=== PATIENT | female | born 1950 | race Caucasian/White ===

== ENCOUNTER 2017-05-16 13:49 | Emergency (ER) | payer OTHER, MEDICAID ==
[~2017-05-16] VITALS: Ht 162.6 cm; Wt 87.0 kg
[~2017-05-16 13:49] MED LIST: ATEN1TAB74 PO; CYCL-36 PO; FURO1TAB93 PO; LORT5TAB PO; MEVA40TA PO; POTA20IN3 PO; SYNT112T PO; TRAM50TA PO; VENL75 PO; VITA100018 PO; WARF4 PO; XANA0.5T PO
[2017-05-16] MEDS ORDERED: IOHEXOL 350 MG/ML 10 ML VIAL (for RAD DIAG) IVCONTRAST ONE (13:50)
[2017-05-16] MEDS ORDERED: MORPHINE SULFATE 4 MG/ML INJ IV PUSH ONE (14:00)
[2017-05-16] MEDS ORDERED: ONDANSETRON HCL 4 MG/2 ML VIAL IV PUSH ONE (14:00)
--- NOTE | 2017-05-16 14:06 | PD ---
HPI Chief Complaint: Fall Time Seen by Provider: 13:58 Travel History International Travel<30 days: No Contact w/Intl Traveler<30days: No Traveled to known affect area: No History of Present Illness HPI 67-year-old female that presents to the ED for evaluation of fall. Patient accidentally had a mechanical fall at [employer] lot today. She tripped over a curb. She hit her head. She has an abrasion to the right side of the head and states that she lost consciousness but possibly a couple seconds. Per ambulance she was not ambulatory and seen with a were able to get her back on her feet. She denies any back pain or leg pain. No arm pain. She denies any chest pain or abdominal pain both with evaluation she does have some abdominal discomfort. She denies any blood thinners. She does state that she has a history of chronic back problems but nothing new from the back. Mainly she has pain in her head. She denies any blurry vision or double vision. Pain per patient is 7 out of 10 on the head. Mainly on the right side of the head where she has the abrasion. She is not sure of her last tetanus booster. She denies any nausea or vomiting at this time. She was put on a cervical collar but no back brace. PFSH Past Medical History Arthritis: Yes Blood Disorders: No Anxiety: Yes Depression: Yes Heart Rhythm Problems: No Cancer: No Cardiovascular Problems: Yes High Cholesterol: Yes Chest Pain: No Congestive Heart Failure: No Diabetes: No Endocrine: Yes Genitourinary: No Hypertension: Yes Immune Disorder: No Implanted Vascular Access Dvce: Yes Musculoskeletal: Yes Neurologic: Yes Psychiatric: Yes Reproductive: No Respiratory: Yes Myocardial Infarction: No Sleep Apnea: Yes Thyroid Disease: Yes Menopausal: Yes Tubal Ligation: Yes Past Surgical History Abdominal Surgery: Yes (CHOLECYSTECTOMY) Cardiac Surgery: No Cholecystectomy: Yes Ear Surgery: No Endocrine Surgery: No Eye Surgery: No Genitourinary Surgery: No Gynecologic Surgery: Yes (TUBAL LIGATION) Joint Replacement: Yes (RT KNEE) Oral Surgery: No Other Surgery: Yes Social History Alcohol Use: No Tobacco Use: No Substance Use: No Allergies-Medications (Allergen,Severity, Reaction): Coded Allergies: codeine (Unverified Allergy, Severe, 02/12/17) acetaminophen (Unverified Adverse Reaction, Severe, THROAT SWELLING - NAUSEA VOMITING, 02/12/17) Reported Meds & Prescriptions Reported Meds & Active Scripts Active Lortab 5/500 (Acetaminophen/Hydrocodone Bitart) 5 Mg/500 Mg Tab 1 Tab PO Q6HPRN Reported Vitamin D (Cholecalciferol) 1,000 Unit Tab 50,000 Unit PO WEEKLY Synthroid (Levothyroxine Sodium) 112 Mcg Tab 112 Mcg PO DAILY Coumadin 4 Mg Tab (Warfarin Sod) 4 Mg Tab 5 Mg PO DAILY Xanax 0.5 Mg Tab (Alprazolam) 0.5 Mg Tab 0.5 Mg PO DAILY Effexor 75 Mg Tab (Venlafaxine HCl) 75 Mg Tab 75 Mg PO DAILY Lovastatin 40 Mg Tab 40 Mg PO DAILY Tramadol Hcl (Tramadol HCl) 50 Mg Tab 50 Mg PO TID Potassium Chloride 20 Meq Pow 20 Meq PO DAILY Flexeril (Cyclobenzaprine HCl) 10 Mg Tab 10 Mg PO DAILY Lasix (Furosemide) 40 Mg Tab 40 Mg PO DAILY Tenormin (Atenolol) 50 Mg Tab 50 Mg PO DAILY Review of Systems Except as stated in HPI: all other systems reviewed are Neg Physical Exam Narrative GENERAL: SKIN: Warm and dry. HEAD: Atraumatic. Normocephalic. EYES: Pupils equal and round 4 mm reactive to light and accommodation. No scleral icterus. No injection or drainage. ENT: No nasal bleeding or discharge. Mucous membranes pink and moist. Tongue is midline. No uvula deviation. NECK: Trachea midline. No JVD. CARDIOVASCULAR: Regular rate and rhythm. No murmurs, S3, S4. RESPIRATORY: No accessory muscle use. Clear to auscultation. Breath sounds equal bilaterally. GASTROINTESTINAL: Abdomen soft, tenderness to palpation on the abdomen but mainly on the lower abdomen, nondistended. Hepatic and splenic margins not palpable. MUSCULOSKELETAL: Extremities without clubbing, cyanosis, or edema. No obvious deformities. Full range of motion of the upper and lower extremities bilaterally with no obvious discomfort. No obvious deformity noted. Pupils pulses bilaterally. No obvious lumbar, thoracic spine tenderness to palpation. Patient does have slight cervical spine tenderness to palpation but more of the pain appears to be on the right side of the neck. Patient was seen with cervical collar noted. NEUROLOGICAL: Awake and alert. No obvious cranial nerve deficits. Motor grossly within normal limits. Five out of 5 muscle strength in the arms and legs. Normal speech. PSYCHIATRIC: Appropriate mood and affect; insight and judgment normal. Data Data Orders Orders Complete Blood Count With Diff (05/16/17 13:58) Basic Metabolic Panel (Bmp) (05/16/17 13:58) Prothrombin Time / Inr (Pt) (05/16/17 13:58) Act Partial Throm Time (Ptt) (05/16/17 13:58) Magnesium (Mg) (05/16/17 13:58) Chest, Single Ap (05/16/17 13:58) Ct Brain W/O Iv Contrast(Rout) (05/16/17 13:58) Ct Abd/Pel W Iv Contrast(Rout) (05/16/17 13:58) Iv Access Insert/Monitor (05/16/17 13:58) Chest, Single Ap (05/16/17 13:58) Pelvis, Ap Only (Routine) (05/16/17 13:58) Ct Cerv Spine W/O Contrast (05/16/17 13:58) Morphine Inj (Morphine Inj) (05/16/17 14:00) Ondansetron Inj (Zofran Inj) (05/16/17 14:00) MDM Medical Decision Making Medical Screen Exam Complete: Yes Emergency Medical Condition: Yes Medical Record Reviewed: Yes Differential Diagnosis Fall versus mechanical fall versus head injury versus abrasion versus laceration versus ICH versus fracture versus minor trauma Narrative Course 67-year-old female that presents to the ED for evaluation of fall. Patient was properly examined and was found to have signs and symptoms consistent with appears to be mechanical fall. Labs and imaging were ordered. On examination patient did had some abdominal discomfort with touch. Per patient she did fell on her belly. She denies any chest pain or abdominal pain unless I touch it. At this time I recommend labs and imaging showed. She agrees with this. Patient was given IV pain medications. Patient will be signed out to incoming provider pending disposition. Giovanni Guaman May 16, 2017 14:06
[2017-05-16 14:07] VITALS: BP 138/77; PULSE 66; RESP 16; TEMP 98.8; O2SAT 96
[2017-05-16] MEDS ORDERED: VITA1000 PO (15:11)
[2017-05-16] MEDS ORDERED: CYCL10TA PO (15:11)
[2017-05-16] MEDS ORDERED: LOVA40TA PO (15:11)
[2017-05-16] MEDS ORDERED: POTA-163 PO (15:11)
[2017-05-16] MEDS ORDERED: TRAZ50TA12 PO (15:11)
[2017-05-16] MEDS ORDERED: ALPR0.5T3 PO (15:11)
[2017-05-16] MEDS ORDERED: LEVO112T2 PO (15:11)
[2017-05-16] MEDS ORDERED: VENL75TA PO (15:11)
[2017-05-16] MEDS ORDERED: ATEN50TA PO (15:11)
[2017-05-16 15:13] VITALS: BP 141/75; PULSE 62; RESP 18; O2SAT 97
--- NOTE | 2017-05-16 15:20 | RADRPT ---
EXAM DATE/TIME: 05/16/2017 14:29 [facility] COMPARISON: No previous studies available for comparison. INDICATIONS : Fell today. MEDICAL HISTORY : Unknown SURGICAL HISTORY : Unknown ENCOUNTER: Initial ACUITY: 1 day PAIN SCORE: Non-responsive. LOCATION: Bilateral pelvis FINDINGS: There is no acute fracture or dislocation of the bony pelvis. Hardware is noted within the left prox imal femur. Mild degenerative changes are noted involving the hip joints. Degenerative changes are noted throughout the lumbar spine. CONCLUSION: 1. No acute fracture or dislocation. 2. Degenerative changes involving the lumbar spine and bilateral hips. Kirt Heller MD on May 16, 2017 at 15:16 Board Certified Radiologist. This report was verified electronically.
--- NOTE | 2017-05-16 15:25 | RADRPT ---
EXAM DATE/TIME: 05/16/2017 14:27 [facility] COMPARISON: No previous studies available for comparison. INDICATIONS : Fell today. MEDICAL HISTORY : unknown SURGICAL HISTORY : unknown ENCOUNTER: Initial ACUITY: 1 day PAIN SCORE: Non-responsive. LOCATION: Bilateral chest FINDINGS: There is cardiomegaly. There is prominence of the mediastinum. There is no evidence of rib fracture o r apical pleural capping. This is full this is secondary to projection however, CT imaging of the tho rax for further assessment of this would be warranted. Adenopathy is not excluded. The lungs demonstr ate chronic interstitial changes but are otherwise clear. The visualized bony structures are grossly intact. CONCLUSION: 1. Prominence of the mediastinum which may simply be projectional. Further assessment with CT imaging could be performed for more definitive evaluation. Avery Velez MD on May 16, 2017 at 15:20 Board Certified Radiologist. This report was verified electronically.
[2017-05-16 15:44] LABS: AUTOMATED NEUTROPHIL # 7.2 TH/MM3 (1.8-7.7); BASOPHIL # 0.1 TH/MM3 (0-0.2); EOSINOPHIL # 0.3 TH/MM3 (0-0.4); EOSINOPHIL % 3.1 % (0.0-4.0); HEMATOCRIT 38.4 % (35.0-46.0); LYMPH % 16.7 % (9.0-44.0); LYMPHOCYTE # 1.7 TH/MM3 (1.0-4.8); MEAN CELL VOLUME 103.2 FL (80.0-100.0); MEAN CORPUSCULAR HEMOGLOBIN 35.4 PG (27.0-34.0); MEAN CORPUSCULAR HGB CONC 34.3 % (32.0-36.0); MONO % 6.7 % (0.0-8.0); NEUT % 72.5 % (16.0-70.0); PLATELET COUNT 180 TH/MM3 (150-450); RED BLOOD COUNT 3.72 MIL/MM3 (4.00-5.30); RED CELL DISTRIBUTION WIDTH 13.9 % (11.6-17.2); WHITE BLOOD COUNT 9.9 TH/MM3 (4.0-11.0)
[2017-05-16 15:55] LABS: APTT (PATIENT) 29.2 SEC (24.3-30.1); INTERNATIONAL NORMALIZED RATIO 0.9 RATIO; PROTHROMBIN TIME - PATIENT 10.2 SEC (9.8-11.6)
[2017-05-16 15:59] LABS: HEMO FLAGS AUTO DIFF
[2017-05-16 16:02] VITALS: BP 141/75
[2017-05-16 16:09] LABS: BICARBONATE 26.5 MEQ/L (21.0-32.0); MAGNESIUM 2.2 MG/DL (1.5-2.5); POTASSIUM 4.5 MEQ/L (3.5-5.1)
[2017-05-16 16:44] LABS: BANDS 4 % (0-6); EOSINOPHILS 6 % (0-4); METAMYELOCYTES 1 % (0-1); MYELOCYTES 1 % (0-0); NEUTROPHIL # MANUAL DIFF 8.1 TH/MM3 (1.8-7.7); POLYS (SEG NEUTROPHILS) 76 % (16-70); WBC DIFF SAMPLE 100
[2017-05-16 16:45] LABS: PLATELET ESTIMATE SMEAR NORMAL (NORMAL); PLATELET MORPHOLOGY NORMAL (NORMAL); SCAN/DIFF FINAL DIFF MANUAL
[2017-05-16 16:46] LABS: STOMATOCYTES 1+ (NORMAL)
--- NOTE | 2017-05-16 17:13 | RADRPT ---
EXAM DATE/TIME: 05/16/2017 16:55 [facility] COMPARISON: No previous studies available for comparison. INDICATIONS : Trauma. Fall. Abrasion to forehead. RADIATION DOSE: 64.70 CTDIvol (mGy) ; Tabletop CT Head MEDICAL HISTORY : Cardiovascular disease. Hypertension. Deep venous thrombosis. SURGICAL HISTORY : Cholecystectomy. Tubal ligation. ENCOUNTER: Initial ACUITY: 1 day PAIN SCALE: 5/10 LOCATION: cranial TECHNIQUE: Multiple contiguous axial images were obtained of the head. Using automated exposure control and adj ustment of the mA and/or kV according to patient size, radiation dose was kept as low as reasonably a chievable to obtain optimal diagnostic quality images. DICOM format image data is available electro nically for review and comparison. FINDINGS: CEREBRUM: The ventricles are normal for age. No evidence of midline shift, mass lesion, hemorrhage or acute in farction. No extra-axial fluid collections are seen. POSTERIOR FOSSA: The cerebellum and brainstem are intact. The 4th ventricle is midline. The cerebellopontine angle i s unremarkable. EXTRACRANIAL: The visualized portion of the orbits is intact. There is a small subgaleal hematoma along the right p arietal skull. SKULL: The calvaria is intact. No evidence of skull fracture. CONCLUSION: 1. No acute intracranial abnormality. 2. Small subgaleal hematoma along the right parietal skull. Kirt Heller MD on May 16, 2017 at 17:11 Board Certified Radiologist. This report was verified electronically.
--- NOTE | 2017-05-16 17:20 | RADRPT ---
EXAM DATE/TIME: 05/16/2017 17:02 [facility] COMPARISON: CT CERVICAL SPINE W/O CONTRAST, May 16, 2017, 16:55. INDICATIONS : Trauma. fall. IV CONTRAST: 100 cc Omnipaque 350 (iohexol) IV ; Cumulative dose for multiple exams. ORAL CONTRAST: No oral contrast ingested. RADIATION DOSE: 20.37 CTDIvol (mGy) ; Combined studies - Thorax/Abdomen/Pelvis MEDICAL HISTORY : Cardiovascular disease. Hypertension. Deep venous thrombosis. SURGICAL HISTORY : Cholecystectomy. Tubal ligation. ENCOUNTER: Initial ACUITY: 1 day PAIN SCALE: 0/10 LOCATION: Bilateral abdomen TECHNIQUE: Volumetric scanning of the abdomen and pelvis was performed. Using automated exposure control and ad justment of the mA and/or kV according to patient size, radiation dose was kept as low as reasonably achievable to obtain optimal diagnostic quality images. DICOM format image data is available electro nically for review and comparison. FINDINGS: The limited portion of lung base visualized is clear. The heart is mildly enlarged. The appearance of the liver, spleen, pancreas, adrenal glands and kidneys is within normal limits. There is no free intraperitoneal air. No free intraperitoneal fluid is identified. There is no retrop eritoneal lymphadenopathy. The aorta is normal in caliber. The visualized loops of small and large bowel in the upper abdomen are normal in appearance. The intr a-abdominal wall is intact. There is no free fluid within the pelvis. No iliac or inguinal adenopathy is present. The visualized loops of small and large bowel are unremarkable. The visualized osseous structures demonstrate fairly severe compression fractures of L2 and L3. There is no significant bony retropulsion. The appearance of these would suggest they are q. day. There ar e postsurgical changes within the left hip. CONCLUSION: 1. Compression fractures of L2 and L3. There is no significant bony retropulsion. 2. The remainder the examination is within normal limits. Avery Velez MD on May 16, 2017 at 17:16 Board Certified Radiologist. This report was verified electronically.
--- NOTE | 2017-05-16 17:40 | RADRPT ---
EXAM DATE/TIME: 05/16/2017 17:02 [facility] COMPARISON: No previous studies available for comparison. INDICATIONS : Trauma. Fall. IV CONTRAST: 100 cc Omnipaque 350 (iohexol) IV ; Cumulative dose for multiple exams. RADIATION DOSE: 20.37 CTDIvol (mGy) ; Combined studies - Thorax/Abdomen/Pelvis MEDICAL HISTORY : Cardiovascular disease. Hypertension. Deep venous thrombosis. SURGICAL HISTORY : Cholecystectomy. Tubal ligation. ENCOUNTER: Initial ACUITY: 1 day PAIN SCALE: 0/10 LOCATION: chest TECHNIQUE: Volumetric scanning of the chest was performed. Using automated exposure control and adjustment of t he mA and/or kV according to patient size, radiation dose was kept as low as reasonably achievable to obtain optimal diagnostic quality images. DICOM format image data is available electronically for review and comparison. Follow-up recommendations for detected pulmonary nodules are based at a minimum on nodule size and pa tient risk factors according to Fleischner Society Guidelines. FINDINGS: The heart is enlarged. Coronary artery calcifications are noted. No mediastinal hematoma is noted. Th e lungs are clear without infiltrate, nodule or contusion. No pleural effusion is noted. Degenerative changes and scoliosis of the thoracic spine are noted. Compression deformities are noted involving T 11 and T12 and are of indeterminate ages. CONCLUSION: 1. No acute intrathoracic trauma noted. 2. Cardiomegaly and coronary artery calcifications. 3. Compression deformities involving T11 and T12 of indeterminate ages. 4. Degenerative changes and scoliosis of the thoracic spine. Kirt Heller MD on May 16, 2017 at 17:34 Board Certified Radiologist. This report was verified electronically.
--- NOTE | 2017-05-16 17:41 | RADRPT ---
EXAM DATE/TIME: 05/16/2017 16:55 [facility] COMPARISON: CT HIP LEFT W CONTRAST, June 21, 2012, 17:56. INDICATIONS : Trauma. Fall. RADIATION DOSE: 21.56 CTDIvol (mGy) MEDICAL HISTORY : Cardiovascular disease. Hypertension. Deep venous thrombosis. SURGICAL HISTORY : Cholecystectomy. Tubal ligation. ENCOUNTER: Initial ACUITY: 1 day PAIN SCALE: 5/10 LOCATION: neck TECHNIQUE: Volumetric scanning of the cervical spine was performed. Multiplanar reconstructions in the sagittal, coronal and oblique axial planes were performed. Using automated exposure control and adjustment o f the mA and/or kV according to patient size, radiation dose was kept as low as reasonably achievable to obtain optimal diagnostic quality images. DICOM format image data is available electronically f or review and comparison. FINDINGS: VERTEBRAE: Normal vertebral body height. ALIGNMENT: No evidence of subluxation. C2-C3: The bony spinal canal is normal in size. No evidence of disc bulge or herniation. The neural forami na are bilaterally patent. C3-C4: There is a small broad-based disc bulge. There is mild osteophytic ridging. The thecal space and fora fatou are adequate. There is mild facet arthritis bilaterally. C4-C5: There is a degenerated disc with a small broad-based disc bulge. There is osteophytic ridging from th e vertebral endplates. There is mild facet arthritis bilaterally. The thecal space and foramina are a dequate. C5-C6: The bony spinal canal is normal in size. No evidence of disc bulge or herniation. The neural forami na are bilaterally patent. C6-C7: The bony spinal canal is normal in size. No evidence of disc bulge or herniation. The neural forami na are bilaterally patent. C7-T1: The bony spinal canal is normal in size. No evidence of disc bulge or herniation. The neural forami na are bilaterally patent. CONCLUSION: 1. Mild degenerative changes. No acute abnormality. Avery Velez MD on May 16, 2017 at 17:37 Board Certified Radiologist. This report was verified electronically.
[2017-05-16] MEDS ORDERED: LIDOCAINE 2%/EPINEPHrine 1:100,000 20ML MDV NERV BLOCK ONE (18:00)
--- NOTE | 2017-05-16 18:36 | PD ---
Physical Exam Date Seen by Provider: May 16, 2017 Time Seen by Provider: 18:34 Narrative I was asked by Dr. Barillas to close a scalp laceration on this patient. Please see my procedure note. Data Data Last Documented VS Vital Signs Date Time Temp Pulse Resp B/P (MAP) Pulse Ox O2 Delivery O2 Flow Rate FiO2 05/16/17 16:02 141/75 (97) 05/16/17 15:13 62 18 97 Room Air 05/16/17 14:07 98.8 Orders Orders Complete Blood Count With Diff (05/16/17 13:58) Basic Metabolic Panel (Bmp) (05/16/17 13:58) Prothrombin Time / Inr (Pt) (05/16/17 13:58) Act Partial Throm Time (Ptt) (05/16/17 13:58) Magnesium (Mg) (05/16/17 13:58) Ct Brain W/O Iv Contrast(Rout) (05/16/17 13:58) Ct Abd/Pel W Iv Contrast(Rout) (05/16/17 13:58) Iv Access Insert/Monitor (05/16/17 13:58) Chest, Single Ap (05/16/17 13:58) Pelvis, Ap Only (Routine) (05/16/17 13:58) Ct Cerv Spine W/O Contrast (05/16/17 13:58) Morphine Inj (Morphine Inj) (05/16/17 14:00) Ondansetron Inj (Zofran Inj) (05/16/17 14:00) Ct Thorax/ Chest W Iv Contrast (05/16/17 ) Iohexol 350 Inj (Omnipaque 350 Inj) (05/16/17 13:50) Lidocai-Epi 2%-1:100,000 Inj (Xylocaine- (05/16/17 18:00) Oxycodone (Roxicodone) (05/16/17 18:15) TLSO (05/16/17 ) Labs Laboratory Tests Test 05/16/17 15:00 White Blood Count 9.9 TH/MM3 Red Blood Count 3.72 MIL/MM3 Hemoglobin 13.2 GM/DL Hematocrit 38.4 % Mean Corpuscular Volume 103.2 FL Mean Corpuscular Hemoglobin 35.4 PG Mean Corpuscular Hemoglobin Concent 34.3 % Red Cell Distribution Width 13.9 % Platelet Count 180 TH/MM3 Mean Platelet Volume 7.5 FL Neutrophils (%) (Auto) 72.5 % Lymphocytes (%) (Auto) 16.7 % Monocytes (%) (Auto) 6.7 % Eosinophils (%) (Auto) 3.1 % Basophils (%) (Auto) 1.0 % Neutrophils # (Auto) 7.2 TH/MM3 Lymphocytes # (Auto) 1.7 TH/MM3 Monocytes # (Auto) 0.7 TH/MM3 Eosinophils # (Auto) 0.3 TH/MM3 Basophils # (Auto) 0.1 TH/MM3 CBC Comment AUTO DIFF Differential Total Cells Counted 100 Neutrophils % (Manual) 76 % Band Neutrophils % 4 % Lymphocytes % 9 % Monocytes % 3 % Eosinophils % 6 % Neutrophils # (Manual) 8.1 TH/MM3 Metamyelocytes 1 % Myelocytes 1 % Differential Comment FINAL DIFF MANUAL Platelet Estimate NORMAL Platelet Morphology Comment NORMAL Stomatocytes 1+ Prothrombin Time 10.2 SEC Prothromb Time International Ratio 0.9 RATIO Activated Partial Thromboplast Time 29.2 SEC Blood Urea Nitrogen 22 MG/DL Creatinine 0.99 MG/DL Random Glucose 99 MG/DL Calcium Level 8.6 MG/DL Magnesium Level 2.2 MG/DL Sodium Level 140 MEQ/L Potassium Level 4.5 MEQ/L Chloride Level 105 MEQ/L Carbon Dioxide Level 26.5 MEQ/L Anion Gap 9 MEQ/L Estimat Glomerular Filtration Rate 56 ML/MIN [facility] Medical Record Reviewed: Yes Supervised Visit with BRITTANY: Yes Procedures Procedure Narrative LACERATION LOCATION: Right upper posterior scalp LENGTH: 3 cm NUMBER OF STITCHES/SHERRY: 11 Sherry REPAIR: The area of the laceration was prepped with Betadine and sterilely draped. The laceration was infiltrated with 3 mL 2% lidocaine with epi. The wound was copiously irrigated and explored without evidence of foreign body, tendon injury or neurovascular injury. The wound was closed using sherry. This was a single layer repair. The patient was advised to keep the wound clean and dry. Patient tolerated the procedure well. Condition: Stable Jeremias Nuñez May 16, 2017 18:36
[2017-05-16] MEDS ORDERED: OXYC1CAP PO (18:49)
--- NOTE | 2017-05-16 18:49 | PD ---
Physical Exam Narrative I, Dr. Barillas, have reviewed the advance practice practitioner's documentation and am in agreement, met with the patient face to face, made the diagnosis, and the medical decision making was done by me. *My assessment and Findings: Patient is a 67-year-old female who slipped and fell today. She complains of pain all over her body. Exam shows a laceration to the right occipital part of the head. There is no active bleeding. Patient is moving all of her extremities. Data Data Last Documented VS Vital Signs Date Time Temp Pulse Resp B/P (MAP) Pulse Ox O2 Delivery O2 Flow Rate FiO2 05/16/17 16:02 141/75 (97) 05/16/17 15:13 62 18 97 Room Air 05/16/17 14:07 98.8 Orders Orders Complete Blood Count With Diff (05/16/17 13:58) Basic Metabolic Panel (Bmp) (05/16/17 13:58) Prothrombin Time / Inr (Pt) (05/16/17 13:58) Act Partial Throm Time (Ptt) (05/16/17 13:58) Magnesium (Mg) (05/16/17 13:58) Ct Brain W/O Iv Contrast(Rout) (05/16/17 13:58) Ct Abd/Pel W Iv Contrast(Rout) (05/16/17 13:58) Iv Access Insert/Monitor (05/16/17 13:58) Chest, Single Ap (05/16/17 13:58) Pelvis, Ap Only (Routine) (05/16/17 13:58) Ct Cerv Spine W/O Contrast (05/16/17 13:58) Morphine Inj (Morphine Inj) (05/16/17 14:00) Ondansetron Inj (Zofran Inj) (05/16/17 14:00) Ct Thorax/ Chest W Iv Contrast (05/16/17 ) Iohexol 350 Inj (Omnipaque 350 Inj) (05/16/17 13:50) Lidocai-Epi 2%-1:100,000 Inj (Xylocaine- (05/16/17 18:00) Oxycodone (Roxicodone) (05/16/17 18:15) TLSO (05/16/17 ) Labs Laboratory Tests Test 05/16/17 15:00 White Blood Count 9.9 TH/MM3 Red Blood Count 3.72 MIL/MM3 Hemoglobin 13.2 GM/DL Hematocrit 38.4 % Mean Corpuscular Volume 103.2 FL Mean Corpuscular Hemoglobin 35.4 PG Mean Corpuscular Hemoglobin Concent 34.3 % Red Cell Distribution Width 13.9 % Platelet Count 180 TH/MM3 Mean Platelet Volume 7.5 FL Neutrophils (%) (Auto) 72.5 % Lymphocytes (%) (Auto) 16.7 % Monocytes (%) (Auto) 6.7 % Eosinophils (%) (Auto) 3.1 % Basophils (%) (Auto) 1.0 % Neutrophils # (Auto) 7.2 TH/MM3 Lymphocytes # (Auto) 1.7 TH/MM3 Monocytes # (Auto) 0.7 TH/MM3 Eosinophils # (Auto) 0.3 TH/MM3 Basophils # (Auto) 0.1 TH/MM3 CBC Comment AUTO DIFF Differential Total Cells Counted 100 Neutrophils % (Manual) 76 % Band Neutrophils % 4 % Lymphocytes % 9 % Monocytes % 3 % Eosinophils % 6 % Neutrophils # (Manual) 8.1 TH/MM3 Metamyelocytes 1 % Myelocytes 1 % Differential Comment FINAL DIFF MANUAL Platelet Estimate NORMAL Platelet Morphology Comment NORMAL Stomatocytes 1+ Prothrombin Time 10.2 SEC Prothromb Time International Ratio 0.9 RATIO Activated Partial Thromboplast Time 29.2 SEC Blood Urea Nitrogen 22 MG/DL Creatinine 0.99 MG/DL Random Glucose 99 MG/DL Calcium Level 8.6 MG/DL Magnesium Level 2.2 MG/DL Sodium Level 140 MEQ/L Potassium Level 4.5 MEQ/L Chloride Level 105 MEQ/L Carbon Dioxide Level 26.5 MEQ/L Anion Gap 9 MEQ/L Estimat Glomerular Filtration Rate 56 ML/MIN [facility] Supervised Visit with BRITTANY: Yes Narrative Course CT head and C-spine show no acute abnormalities. There is a subgaleal hematoma of the scalp. CT the abdomen and pelvis shows compression fractures at L2 and L3. I spoke with Dr. Gmoez of neurosurgery who suggests a TLSO brace and follow-up in the office. Patient given pain medicine. Given a prescription for pain medicine and advised to call Dr. Gomez's office. Advised to return to the ED as needed for any worsening symptoms. Her scalp wound was closed with ledy. She is advised she needs to have these removed in 5 days. Diagnosis Primary Impression: Fall Qualified Codes: W19.XXXA - Unspecified fall, initial encounter Additional Impressions: Compression fracture of L2 lumbar vertebra Qualified Codes: S32.020A - Wedge compression fracture of second lumbar vertebra, initial encounter for closed fracture Compression fracture of L3 lumbar vertebra Qualified Codes: S32.030A - Wedge compression fracture of third lumbar vertebra, initial encounter for closed fracture Laceration of scalp Qualified Codes: S01.01XA - Laceration without foreign body of scalp, initial encounter Referrals: Burton Gomez MD call for appointment Patient Instructions: General Instructions, Laceration (ED), Vertebral Compression Fracture (ED) Additional Instruction: Follow up with Dr. Gomez. Take pain medicine as needed, but be careful as it may make you drowsy. Return to the ED as needed for any worsening symptoms. Scripts Oxycodone (Oxycodone) 5 Mg Cap 5 MG PO Q6H Y for PAIN, #10 CAP 0 Refills Prov: Josefina Barillas MD 05/16/17 Disposition: 01 DISCHARGE HOME Condition: Stable Josefina Barillas MD May 16, 2017 18:49
[2017-05-16] MEDS ORDERED: TETANUS/DIPHTHERIA TOXOID ADULT 0.5 ML VIAL IM ONE (19:00)
== END 2017-05-16 19:04 | disposition home or self-care (01) ==
LOC: NEPE 13:49
DX: S32.020A Wedge compression fracture of second lumbar vertebra, initial encounter for closed fracture (principal); S32.030A Wedge compression fracture of third lumbar vertebra, initial encounter for closed fracture; S01.01XA Laceration without foreign body of scalp, initial encounter; M19.90 Unspecified osteoarthritis, unspecified site; I10 Essential (primary) hypertension; E78.00 Pure hypercholesterolemia, unspecified; W01.0XXA Fall on same level from slipping, tripping and stumbling without subsequent striking against object, initial encounter; Y92.481 Parking lot as the place of occurrence of the external cause; Z23 Encounter for immunization
CPT/HCPCS: 12002; 70450; 71010; 71260; 72125; 72170; 74177; 80048; 83735; 85007; 85027; 85610; 85730; 90471; 90714; 96374; 96375; 99285; J2270; J2405; L0200; L0484; Q9967

== ENCOUNTER 2017-05-23 08:12 | Emergency (ER) | payer OTHER, MEDICAID ==
[~2017-05-23] VITALS: Ht 162.6 cm; Wt 85.0 kg
[~2017-05-23 08:12] MED LIST changes: +ALPR0.5T3 PO; -ATEN1TAB74 PO; +ATEN50TA PO; -CYCL-36 PO; +CYCL10TA PO; -FURO1TAB93 PO; +LEVO112T2 PO; -LORT5TAB PO; +LOVA40TA PO; -MEVA40TA PO; +OXYC1CAP PO; +POTA-163 PO; -SYNT112T PO; -TRAM50TA PO; +TRAZ50TA12 PO; -VENL75 PO; +VENL75TA PO; +VITA1000 PO; -VITA100018 PO; -WARF4 PO; -XANA0.5T PO
[2017-05-23 08:17] VITALS: BP 141/97; PULSE 56; RESP 16; TEMP 98.3; O2SAT 96
--- NOTE | 2017-05-23 08:53 | PD ---
HPI Chief Complaint: Wound/Suture/Staple Re-Check Time Seen by Provider: 08:26 Travel History International Travel<30 days: No Contact w/Intl Traveler<30days: No Traveled to known affect area: No History of Present Illness HPI 67-year-old female presents to the emergency department for staple removal. States she has minimal discomfort at this time and is ready to get them removed. Patient denies fever, chills or any other complaints. PFSH Past Medical History Hx Anticoagulant Therapy: No Arthritis: Yes Blood Disorders: No Anxiety: Yes Depression: Yes Heart Rhythm Problems: No Cancer: No Cardiovascular Problems: Yes High Cholesterol: Yes Chest Pain: No Congestive Heart Failure: No Cerebrovascular Accident: Yes Diabetes: No Endocrine: Yes Genitourinary: No Hypertension: Yes Immune Disorder: No Implanted Vascular Access Dvce: Yes Musculoskeletal: Yes Neurologic: Yes Psychiatric: Yes Reproductive: No Respiratory: Yes Myocardial Infarction: No Sleep Apnea: Yes Thyroid Disease: Yes ?: Not Menopausal: Yes Tubal Ligation: Yes Past Surgical History Abdominal Surgery: Yes (CHOLECYSTECTOMY) Cardiac Surgery: No Cholecystectomy: Yes Ear Surgery: No Endocrine Surgery: No Eye Surgery: No Genitourinary Surgery: No Gynecologic Surgery: Yes (TUBAL LIGATION) Joint Replacement: Yes (RT KNEE) Oral Surgery: No Other Surgery: Yes Social History Alcohol Use: Yes Tobacco Use: No Substance Use: No Allergies-Medications (Allergen,Severity, Reaction): Coded Allergies: codeine (Unverified Allergy, Severe, 05/23/17) acetaminophen (Unverified Adverse Reaction, Severe, THROAT SWELLING - NAUSEA VOMITING, 05/23/17) Reported Meds & Prescriptions Reported Meds & Active Scripts Active Oxycodone (Oxycodone HCl) 5 Mg Cap 5 Mg PO Q6H PRN Reported Lorazepam 0.5 Mg Tab 0.5 Mg PO DAILY PRN Potassium Chloride ER (Potassium Chloride) 20 Meq Tab 20 Meq PO DAILY Vitamin D-1000 (Cholecalciferol) 1,000 Unit Tab 1,000 Units PO DAILY Trazodone (Trazodone HCl) 50 Mg Tab 50 Mg PO HS Atenolol 50 Mg Tab 50 Mg PO BID Flexeril (Cyclobenzaprine HCl) 10 Mg Tab 10 Mg PO TID Lovastatin 40 Mg Tab 40 Mg PO DAILY Effexor (Venlafaxine HCl) 75 Mg Tab 75 Mg PO DAILY Levothyroxine (Levothyroxine Sodium) 112 Mcg Tab 112 Mcg PO DAILY Review of Systems Except as stated in HPI: all other systems reviewed are Neg Physical Exam Narrative GENERAL: Well-nourished, well-developed patient. SKIN: Focused skin assessment warm/dry. 11 ledy in the scalp, nonbleeding well healed HEAD: Normocephalic. EYES: No scleral icterus. No injection or drainage. NECK: Supple, trachea midline. No JVD or lymphadenopathy. GASTROINTESTINAL: Abdomen soft, non-tender, nondistended. MUSCULOSKELETAL: No cyanosis, or edema. Patient is in a spine immobilizing device from previous ER visit BACK: Nontender without obvious deformity. No CVA tenderness. Data Data Last Documented VS Vital Signs Date Time Temp Pulse Resp B/P (MAP) Pulse Ox O2 Delivery O2 Flow Rate FiO2 05/23/17 09:25 05/23/17 08:17 98.3 56 16 96 Room Air Orders Orders Ed Discharge Order (05/23/17 08:53) MDM Medical Decision Making Medical Screen Exam Complete: Yes Emergency Medical Condition: Yes Differential Diagnosis Staple removal versus suture removal versus laceration Narrative Course 67-year-old female presents to the emergency department for staple removal. States she has minimal discomfort at this time and is ready to get them removed. Patient denies fever, chills or any other complaints. Vital signs stable [place] are removed with minimal discomfort. Slight bleeding from the removal site. Wound healing well without dehiscence. Advised patient on wound care. Advised patient to follow up with primary care physician for wound check and evaluation. Patient understands and will comply. Diagnosis Primary Impression: Removal of staple Referrals: Primary Care Physician Additional Instructions: You may wash hair lightly today. You may bleed for 1 day but she should not bleed excessively. Applied pressure to the area if the site bleeds. Follow-up with her primary care physician within 2-3 days. Disposition: 01 DISCHARGE HOME Condition: Stable Suki Mcmahan May 23, 2017 08:53
[2017-05-23] MEDS ORDERED: LORA0.5T PO (09:14)
== END 2017-05-23 09:25 | disposition home or self-care (01) ==
LOC: NEPD 08:12
DX: Z48.02 Encounter for removal of sutures (principal); M19.90 Unspecified osteoarthritis, unspecified site; F41.9 Anxiety disorder, unspecified; F32.9 Major depressive disorder, single episode, unspecified; E78.00 Pure hypercholesterolemia, unspecified; I10 Essential (primary) hypertension; Z79.899 Other long term (current) drug therapy; Z88.5 Allergy status to narcotic agent; Z86.73 Personal history of transient ischemic attack (TIA), and cerebral infarction without residual deficits
CPT/HCPCS: 99281

== ENCOUNTER 2017-08-01 11:14 | Emergency (ER) | payer OTHER, MEDICAID ==
[~2017-08-01] VITALS: Ht 162.6 cm; Wt 93.0 kg
[~2017-08-01 11:14] MED LIST changes: -ALPR0.5T3 PO; +LORA0.5T PO; -POTA20IN3 PO
[2017-08-01 11:19] VITALS: BP 138/76; PULSE 48; RESP 15; TEMP 97.7; O2SAT 97
--- NOTE | 2017-08-01 12:46 | RADRPT ---
EXAM DATE/TIME: 08/01/2017 12:14 [facility] COMPARISON: No previous studies available for comparison. INDICATIONS : Right side possible foreign body. Previous laceration with ledy to right side of skull. [place] re moved in May 2017. MEDICAL HISTORY : Cardiovascular disease. Hypertension Deep venous thrombosis. SURGICAL HISTORY : Tubal ligation. Cholecystectomy. ENCOUNTER: Initial ACUITY: 3 months PAIN SCORE: 4/10 LOCATION: Right Skull FINDINGS: A two view examination of the skull demonstrates no evidence of fracture. The pituitary fossa is nor mal in configuration. No radiopaque foreign bodies are seen. CONCLUSION: No foreign body seen. Jez Wilson MD on August 01, 2017 at 12:43 Board Certified Radiologist. This report was verified electronically.
--- NOTE | 2017-08-01 12:58 | PD ---
HPI Chief Complaint: Headache Time Seen by Provider: 11:55 Travel History International Travel<30 days: No Contact w/Intl Traveler<30days: No Traveled to known affect area: No History of Present Illness HPI This is a 67-year-old female who presents to the emergency department having had a fall in May sustaining a closed head injury and having ledy put in. She had the eldy removed late May. She comes in today thinking that she has a staple retained in her skull. She has pain over the area of her scab, constant, moderate severity and she feels like there is something in there. She denies other symptoms. PFSH Past Medical History Hx Anticoagulant Therapy: No Arthritis: Yes Blood Disorders: No Anxiety: Yes Depression: Yes Heart Rhythm Problems: No Cancer: No Cardiovascular Problems: Yes High Cholesterol: Yes Chest Pain: No Congestive Heart Failure: No Cerebrovascular Accident: Yes Diabetes: No Deep Vein Thrombosis: Yes (left leg) Endocrine: Yes Genitourinary: No Hypertension: Yes Immune Disorder: No Implanted Vascular Access Dvce: Yes Musculoskeletal: Yes Neurologic: Yes Psychiatric: Yes Reproductive: No Respiratory: Yes Myocardial Infarction: No Sleep Apnea: Yes Thyroid Disease: Yes ?: Not Menopausal: Yes Tubal Ligation: Yes Past Surgical History Abdominal Surgery: Yes (CHOLECYSTECTOMY) Cardiac Surgery: No Cholecystectomy: Yes Ear Surgery: No Endocrine Surgery: No Eye Surgery: No Genitourinary Surgery: No Gynecologic Surgery: Yes (TUBAL LIGATION) Joint Replacement: Yes (RT KNEE) Oral Surgery: No Other Surgery: Yes Family History Family Myocardial Infarction: Yes Social History Alcohol Use: Yes (wine weekly) Tobacco Use: No Substance Use: No Allergies-Medications (Allergen,Severity, Reaction): Coded Allergies: codeine (Unverified Allergy, Severe, 08/01/17) acetaminophen (Unverified Adverse Reaction, Severe, THROAT SWELLING - NAUSEA VOMITING, 08/01/17) Reported Meds & Prescriptions Reported Meds & Active Scripts Active Oxycodone (Oxycodone HCl) 5 Mg Cap 5 Mg PO Q6H PRN Reported Lorazepam 0.5 Mg Tab 0.5 Mg PO DAILY PRN Potassium Chloride ER (Potassium Chloride) 20 Meq Tab 20 Meq PO DAILY Vitamin D-1000 (Cholecalciferol) 1,000 Unit Tab 1,000 Units PO DAILY Trazodone (Trazodone HCl) 50 Mg Tab 50 Mg PO HS Atenolol 50 Mg Tab 50 Mg PO BID Flexeril (Cyclobenzaprine HCl) 10 Mg Tab 10 Mg PO TID Lovastatin 40 Mg Tab 40 Mg PO DAILY Effexor (Venlafaxine HCl) 75 Mg Tab 75 Mg PO DAILY Levothyroxine (Levothyroxine Sodium) 112 Mcg Tab 112 Mcg PO DAILY Review of Systems General / Constitutional: No: Fever, Chills Cardiovascular: No: Chest Pain or Discomfort Respiratory: No: Shortness of Breath Physical Exam Narrative GENERAL: Well-appearing, no acute distress, nontoxic SKIN: Scab over the right upper scalp with no palpable stapler foreign body. Patient is locally tender in this area with some scar tissue formation. HEAD: Atraumatic. Normocephalic. ENT: No nasal bleeding or discharge. Moist mucous membranes MUSCULOSKELETAL: No obvious deformities. Moving all extremities. NEUROLOGICAL: Awake and alert. No obvious cranial nerve deficits. Motor grossly within normal limits. Normal speech. PSYCHIATRIC: Appropriate mood and affect; insight and judgment normal. Data Data Last Documented VS Vital Signs Date Time Temp Pulse Resp B/P (MAP) Pulse Ox O2 Delivery O2 Flow Rate FiO2 08/01/17 11:41 Room Air 08/01/17 11:19 97.7 48 15 138/76 (96) 97 Orders Orders Skull, Limited (<4 Views) (08/01/17 ) [facility] Medical Decision Making Medical Screen Exam Complete: Yes Emergency Medical Condition: Yes Differential Diagnosis Retained foreign body, wound healing Narrative Course This is a 67-year-old female who presents to the emergency department thinking that she has a retained staple in her scalp. I do not appreciate a foreign body on exam. Skull x-rays were obtained which are reassuring with no evidence of retained staple. I think the patient has normal scar formation. She will be discharged home. Diagnosis Primary Impression: Scar Patient Instructions: General Instructions Additional Instructions: If you develop discharge from the wound, severe pain or redness return to the emergency room. Med/Other Pt SpecificInfo: No Change to Meds Disposition: 01 DISCHARGE HOME Condition: Stable Lorena Peralta MD Aug 01, 2017 12:58
== END 2017-08-01 13:21 | disposition home or self-care (01) ==
LOC: NEPD 11:14
DX: L90.5 Scar conditions and fibrosis of skin (principal); M19.90 Unspecified osteoarthritis, unspecified site; F41.9 Anxiety disorder, unspecified; F32.9 Major depressive disorder, single episode, unspecified; E78.00 Pure hypercholesterolemia, unspecified; I10 Essential (primary) hypertension; E07.9 Disorder of thyroid, unspecified; Z86.73 Personal history of transient ischemic attack (TIA), and cerebral infarction without residual deficits; Z86.718 Personal history of other venous thrombosis and embolism
CPT/HCPCS: 70250; 99283

== ENCOUNTER 2017-09-17 10:22 | Inpatient (IN) | payer OTHER, MEDICAID, MEDICARE ==
[2017-09-17] VITALS (8 sets, daily range): BP systolic 95–137; BP diastolic 68–87; PULSE 91–157; RESP 14–18; TEMP 98.9–100.7; O2SAT 91–99
[~2017-09-17] VITALS: Ht 165.1 cm; Wt 93.3 kg
[2017-09-17] MEDS ORDERED: DILTIAZEM HCL 25 MG/5 ML VIAL IV PUSH ONE (11:15)
[2017-09-17] MEDS ORDERED: ONDANSETRON HCL 4 MG/2 ML VIAL IV PUSH ONE (11:15)
[2017-09-17] MEDS ORDERED: SODIUM CHLOR 0.9% 1000 ML INJ 1,000 ML IV ONE ×2 (11:15→12:15)
[2017-09-17] MEDS ORDERED: IBUPROFEN 600 MG TAB PO ONE (11:15)
[2017-09-17 11:38] LABS: AUTOMATED NEUTROPHIL # 4.1 TH/MM3 (1.8-7.7); BASOPHIL % 0.6 % (0.0-2.0); EOSINOPHIL % 0.3 % (0.0-4.0); HEMATOCRIT 47.4 % (35.0-46.0); HEMOGLOBIN 16.2 GM/DL (11.6-15.3); LYMPH % 15.9 % (9.0-44.0); LYMPHOCYTE # 0.9 TH/MM3 (1.0-4.8); MEAN CELL VOLUME 98.5 FL (80.0-100.0); MEAN CORPUSCULAR HEMOGLOBIN 33.6 PG (27.0-34.0); MEAN CORPUSCULAR HGB CONC 34.1 % (32.0-36.0); MEAN PLATELET VOLUME 9.3 FL (7.0-11.0); MONO % 7.7 % (0.0-8.0); MONOCYTE # 0.4 TH/MM3 (0-0.9); NEUT % 75.5 % (16.0-70.0); PLATELET COUNT 89 TH/MM3 (150-450); RED BLOOD COUNT 4.81 MIL/MM3 (4.00-5.30); RED CELL DISTRIBUTION WIDTH 13.2 % (11.6-17.2); WHITE BLOOD COUNT 5.4 TH/MM3 (4.0-11.0)
[2017-09-17 11:50] LABS: LACTIC ACID SEPSIS PROTOCOL 3.2 mmol/L (0.4-2.0)
[2017-09-17 11:54] LABS: PROTHROMBIN TIME - PATIENT 11.4 SEC (9.8-11.6)
[2017-09-17 11:55] LABS: INTERNATIONAL NORMALIZED RATIO 1.1 RATIO
[2017-09-17 11:59] LABS: BACTERIA, URINE OCC /hpf; BLOOD, URINE NEG (NEG); GLUCOSE,URINE NEG (NEG); HYALINE CAST, URINE 30 /lpf (RARE); KETONE, URINE 10 mg/dL (NEG); MUCUS URINE MANY /lpf (OCC); NITRITE,URINE NEG (NEG); PH, URINE 5.5 (5.0-8.5); SQUAMOUS EPITHELIAL CELL URINE <1 /hpf (0-5); URINE COLOR DARK-YELLOW (YELLW/STRAW); URINE LEUKOCYTE ESTERASE NEG (NEG)
[2017-09-17 12:02] LABS: ALBUMIN 2.9 GM/DL (3.4-5.0); ALKALINE PHOSPHATASE 64 U/L (45-117); ALT (GPT) 14 U/L (10-53); AST (GOT) 65 U/L (15-37); BICARBONATE 23.9 MEQ/L (21.0-32.0); BLOOD UREA NITROGEN 19 MG/DL (7-18); CALCIUM 8.9 MG/DL (8.5-10.1); CHLORIDE 96 MEQ/L (98-107); CREATININE 1.19 MG/DL (0.50-1.00); GLOMERULAR FILTRATION RATE 45 ML/MIN (>89); GLUCOSE,RANDOM 79 MG/DL (74-106); MAGNESIUM 1.7 MG/DL (1.5-2.5); PHOSPHORUS 1.8 MG/DL (2.5-4.9); SODIUM (NA) 132 MEQ/L (136-145); TOTAL BILIRUBIN ADULT 0.7 MG/DL (0.2-1.0); TOTAL PROTEIN 7.8 GM/DL (6.4-8.2); TROPONIN I 0.02 NG/ML (0.02-0.05)
--- NOTE | 2017-09-17 12:02 | RADRPT ---
EXAM DATE/TIME: 09/17/2017 11:46 [facility] COMPARISON: CHEST SINGLE AP, May 16, 2017, 14:27. INDICATIONS : Nausea, vomiting and diarrhea MEDICAL HISTORY : Hypertension. SURGICAL HISTORY : None. ENCOUNTER: Initial ACUITY: 1 week PAIN SCORE: 2/10 LOCATION: Bilateral chest FINDINGS: A single view of the chest demonstrates mild infiltrate in the right lung base. Otherwise, the lungs are grossly clear. The heart size is enlarged but stable. There no pleural effusions or pulmonary abby ma. No other significant changes are seen compared to the prior study.. CONCLUSION: Mild infiltrate right lung base. Stable cardiomegaly. Gonzalo Vega MD on September 17, 2017 at 11:59 Board Certified Radiologist. This report was verified electronically.
--- NOTE | 2017-09-17 12:05 | PD ---
HPI Chief Complaint: Cold / Flu Symptoms Time Seen by Provider: 10:46 Travel History International Travel<30 days: No Contact w/Intl Traveler<30days: No Traveled to known affect area: No History of Present Illness HPI Patient is a 67-year-old female presents mildly altered to the emergency department for evaluation of nausea vomiting and diarrhea for the past few days. Patient was found to be febrile and transport. She denies any abdominal cramping cough congestion or fevers prior to arrival. She states she just feels rundown and aches everywhere. States symptoms have been progressive and gradually worsening and severe. Has not had any recent antibiotics. Denies any chest pain or shortness of breath. Denies a history of atrial fibrillation. Her history is somewhat limited as she appears to be mildly encephalopathic. PFSH Past Medical History Hx Anticoagulant Therapy: No Arthritis: Yes Blood Disorders: No Anxiety: Yes Depression: Yes Heart Rhythm Problems: No Cancer: No Cardiovascular Problems: Yes High Cholesterol: Yes Chest Pain: No Congestive Heart Failure: No Cerebrovascular Accident: Yes Diabetes: No Deep Vein Thrombosis: Yes (left leg) Endocrine: Yes Genitourinary: No Hypertension: Yes Immune Disorder: No Implanted Vascular Access Dvce: Yes Musculoskeletal: Yes Neurologic: Yes Psychiatric: Yes Reproductive: No Respiratory: Yes Myocardial Infarction: No Sleep Apnea: Yes Thyroid Disease: Yes ?: Not Menopausal: Yes Tubal Ligation: Yes Past Surgical History Abdominal Surgery: Yes (CHOLECYSTECTOMY) Cardiac Surgery: No Cholecystectomy: Yes Ear Surgery: No Endocrine Surgery: No Eye Surgery: No Genitourinary Surgery: No Gynecologic Surgery: Yes (TUBAL LIGATION) Joint Replacement: Yes (RT KNEE) Oral Surgery: No Other Surgery: Yes Family History Family Myocardial Infarction: Yes Social History Alcohol Use: Yes (wine weekly) Tobacco Use: No Substance Use: No Allergies-Medications (Allergen,Severity, Reaction): Coded Allergies: codeine (Unverified Allergy, Severe, 09/17/17) acetaminophen (Unverified Adverse Reaction, Severe, THROAT SWELLING - NAUSEA VOMITING, 09/17/17) Reported Meds & Prescriptions Reported Meds & Active Scripts Active Oxycodone (Oxycodone HCl) 5 Mg Cap 5 Mg PO Q6H PRN Reported Lorazepam 0.5 Mg Tab 0.5 Mg PO DAILY PRN Potassium Chloride ER (Potassium Chloride) 20 Meq Tab 20 Meq PO DAILY Vitamin D-1000 (Cholecalciferol) 1,000 Unit Tab 1,000 Units PO DAILY Trazodone (Trazodone HCl) 50 Mg Tab 50 Mg PO HS Atenolol 50 Mg Tab 50 Mg PO BID Flexeril (Cyclobenzaprine HCl) 10 Mg Tab 10 Mg PO TID Lovastatin 40 Mg Tab 40 Mg PO DAILY Effexor (Venlafaxine HCl) 75 Mg Tab 75 Mg PO DAILY Levothyroxine (Levothyroxine Sodium) 112 Mcg Tab 112 Mcg PO DAILY Review of Systems Except as stated in HPI: all other systems reviewed are Neg Physical Exam Narrative GENERAL: Well-developed well-nourished, no obvious distress. SKIN: Focused skin assessment warm/dry. There is significant beefy red rash underneath the breasts bilaterally consistent with fungal infection. HEAD: Atraumatic. Normocephalic. EYES: Pupils equal and round. No scleral icterus. No injection or drainage. ENT: No nasal bleeding or discharge. Mucous membranes pink and moist. TMs clear bilaterally, oropharynx clear moist NECK: Trachea midline. No JVD. CARDIOVASCULAR: Tachycardic and irregularly irregular. No murmur appreciated. RESPIRATORY: No accessory muscle use. Clear to auscultation. Breath sounds equal bilaterally. GASTROINTESTINAL: Abdomen soft, non-tender, nondistended. Hepatic and splenic margins not palpable. MUSCULOSKELETAL: No obvious deformities. No clubbing. No cyanosis. No edema. NEUROLOGICAL: Awake and alert. Cranial nerves II through XII grossly intact and nonfocal, 5 out of 5 strength in all 4 extremities PSYCHIATRIC: Appropriate mood and affect; insight and judgment normal. Data Data Last Documented VS Vital Signs Date Time Temp Pulse Resp B/P (MAP) Pulse Ox O2 Delivery O2 Flow Rate FiO2 09/17/17 14:32 91 18 137/68 (91) 95 Nasal Cannula 2.00 09/17/17 10:40 100.7 Orders Orders Sepsis Workup Initiated (09/17/17 ) Complete Blood Count With Diff (09/17/17 11:01) Comprehensive Metabolic Panel (09/17/17 11:01) Prothrombin Time / Inr (Pt) (09/17/17 11:01) Act Partial Throm Time (Ptt) (09/17/17 11:01) Lactic Acid Sepsis Protocol (09/17/17 11:01) Magnesium (Mg) (09/17/17 11:01) Phosphorus (Po4) (09/17/17 11:01) Lipase (09/17/17 11:01) Ckmb (Isoenzyme) Profile (09/17/17 11:01) Troponin I (09/17/17 11:01) Urinalysis - C+S If Indicated (09/17/17 11:01) Influenzae A/B Antigen (09/17/17 11:01) Blood Culture (09/17/17 11:01) Chest, Single Ap (09/17/17 11:01) Blood Gas Venous (Vbg) (09/17/17 11:01) Blood Glucose (09/17/17 11:01) Ecg Monitoring (09/17/17 11:01) Iv Access Insert/Monitor (09/17/17 11:01) Oximetry (09/17/17 11:01) Oxygen Administration (09/17/17 11:01) Ibuprofen (Motrin) (09/17/17 11:15) Ondansetron Inj (Zofran Inj) (09/17/17 11:15) Sodium Chlor 0.9% 1000 Ml Inj (Ns 1000 M (09/17/17 11:15) Diltiazem Inj (Cardizem Inj) (09/17/17 11:15) Electrocardiogram (09/17/17 10:58) CKMB (09/17/17 11:15) CKMB% (09/17/17 11:15) Sodium Chlor 0.9% 1000 Ml Inj (Ns 1000 M (09/17/17 12:15) Vancomycin Inj (Vancomycin Inj) (09/17/17 13:00) Piperacil-Tazo 4.5 Gm Premix (Zosyn 4.5 (09/17/17 13:00) Urine Culture (09/17/17 11:25) C Diff Toxin Pcr (09/17/17 12:10) Ct Abd/Pel W Iv Contrast(Rout) (09/17/17 ) Vital Signs (Adult) Q15MX4,Q4H (09/17/17 12:11) Picking Supervisor / Telemetry FOZIA.Q8H (09/17/17 12:11) Cardiac Rhythm FOZIA.Q8H (09/17/17 12:11) Notify Dr: Other (09/17/17 12:11) Diltiazem Inj (Cardizem Inj) (09/17/17 12:15) Diltiazem Inj (Cardizem Inj) (09/17/17 12:45) Iohexol 350 Inj (Omnipaque 350 Inj) (09/17/17 13:07) (Hub Use Only)Inp Phy Cons/Ref (09/17/17 ) Admit Order (Ed Use Only) (09/17/17 ) Labs Laboratory Tests Test 09/17/17 11:10 09/17/17 11:15 09/17/17 11:25 09/17/17 13:35 Lactic Acid Level 3.2 mmol/L White Blood Count 5.4 TH/MM3 Red Blood Count 4.81 MIL/MM3 Hemoglobin 16.2 GM/DL Hematocrit 47.4 % Mean Corpuscular Volume 98.5 FL Mean Corpuscular Hemoglobin 33.6 PG Mean Corpuscular Hemoglobin Concent 34.1 % Red Cell Distribution Width 13.2 % Platelet Count 89 TH/MM3 Mean Platelet Volume 9.3 FL Neutrophils (%) (Auto) 75.5 % Lymphocytes (%) (Auto) 15.9 % Monocytes (%) (Auto) 7.7 % Eosinophils (%) (Auto) 0.3 % Basophils (%) (Auto) 0.6 % Neutrophils # (Auto) 4.1 TH/MM3 Lymphocytes # (Auto) 0.9 TH/MM3 Monocytes # (Auto) 0.4 TH/MM3 Eosinophils # (Auto) 0.0 TH/MM3 Basophils # (Auto) 0.0 TH/MM3 CBC Comment AUTO DIFF Differential Comment AUTO DIFF CONFIRMED Platelet Estimate LOW Platelet Morphology Comment NORMAL Prothrombin Time 11.4 SEC Prothromb Time International Ratio 1.1 RATIO Activated Partial Thromboplast Time 32.9 SEC Blood Urea Nitrogen 19 MG/DL Creatinine 1.19 MG/DL Random Glucose 79 MG/DL Total Protein 7.8 GM/DL Albumin 2.9 GM/DL Calcium Level 8.9 MG/DL Phosphorus Level 1.8 MG/DL Magnesium Level 1.7 MG/DL Alkaline Phosphatase 64 U/L Aspartate Amino Transf (AST/SGOT) 65 U/L Alanine Aminotransferase (ALT/SGPT) 14 U/L Total Bilirubin 0.7 MG/DL Sodium Level 132 MEQ/L Potassium Level 4.4 MEQ/L Chloride Level 96 MEQ/L Carbon Dioxide Level 23.9 MEQ/L Anion Gap 12 MEQ/L Estimat Glomerular Filtration Rate 45 ML/MIN Total Creatine Kinase 712 U/L Creatine Kinase MB 0.9 NG/ML Creatine Kinase MB % 0.1 % Troponin I 0.02 NG/ML Lipase 158 U/L Urine Color DARK-YELLOW Urine Turbidity HAZY Urine pH 5.5 Urine Specific [place] 1.029 Urine Protein 30 mg/dL Urine Glucose (UA) NEG mg/dL Urine Ketones 10 mg/dL Urine Occult Blood NEG Urine Nitrite NEG Urine Bilirubin NEG Urine Urobilinogen 2.0 MG/DL Urine Leukocyte Esterase NEG Urine RBC 1 /hpf Urine WBC 2 /hpf Urine Squamous Epithelial Cells <1 /hpf Urine Bacteria OCC /hpf Urine Hyaline Casts 30 /lpf Urine Mucus MANY /lpf Microscopic Urinalysis Comment CATH-CULTURE IND Blood Gas Puncture Site LINE Blood Gas Patient Temperature 98.6 Venous Blood pH 7.36 Venous Blood Partial Pressure CO2 41 mmHg Venous Blood Partial Pressure O2 32 mmHg Venous Blood HCO3 22 mmol/L Venous Blood Oxygen Saturation 56 % Venous Blood Oxygen Content 10.4 Vol % Venous Blood Base Excess -2.2 mmol/L Oxygen Delivery Device NASAL CANNULA Blood Gas Liter Flow 2 L/M MDM Medical Decision Making Medical Screen Exam Complete: Yes Emergency Medical Condition: Yes Differential Diagnosis New onset atrial fibrillation, CHF, pneumonia, influenza, sepsis. Narrative Course Patient room to the emergency department, found to be somewhat dehydrated but heart rate is very tachycardic in the 150s-170s range. Blood pressure somewhat on the low side but still I feel like this tachycardia is mostly cardiac in origin. Cardizem bolus was given, liter normal saline, lactic acid found to be elevated and if she was given an additional liter normal saline. White blood cell count is normal but her hemoglobin hematocrit are elevated and her lactic acid is somewhat elevated as well. X-ray does show small consolidation in UA does show significant pyuria. Was started on vancomycin and Zosyn. Influenza test negative. Discussed with the patient need for admission, she did require second Cardizem bolus and started on a drip. Blood pressure has been perfusable and her mental status is starting to improve slowly. Diagnosis Primary Impression: Severe sepsis Additional Impressions: Pneumonia Atrial fibrillation Atrial fibrillation with RVR New onset a-fib Tinea corporis Admitting Information Admitting Physician Requests: Admit Condition: Stable Kirt Ambriz MD Sep 17, 2017 12:05
[2017-09-17 12:07] LABS: BILIRUBIN, URINE NEG (NEG)
[2017-09-17] MEDS ORDERED: DILTIAZEM INJ 125 MG in SODIUM CHLORIDE 0.9% INJ 100 ML IV PRN (12:15)
[2017-09-17] MEDS ORDERED: DILTIAZEM HCL 25 MG/5 ML VIAL IV PUSH PRN (12:45)
[2017-09-17] MEDS ORDERED: VANCOMYCIN INJ 1,000 MG in SODIUM CHLOR 0.9% 250 ML INJ 250 ML IV ONE (13:00)
[2017-09-17] MEDS ORDERED: PIPERACIL-TAZO 4.5 GM PREMIX 100 ML IV ONE (13:00)
[2017-09-17] MEDS ORDERED: IOHEXOL 350 MG/ML 10 ML VIAL (for RAD DIAG) IVCONTRAST ONE (13:07)
--- NOTE | 2017-09-17 13:51 | RADRPT ---
EXAM DATE/TIME: 09/17/2017 12:55 [facility] COMPARISON: CHEST SINGLE AP, September 17, 2017, 11:46. CT ABDOMEN & PELVIS W CONTRAST, May 16, 2017, 17:02. INDICATIONS : Abdominal pain, nausea, vomiting, diarrhea, fever IV CONTRAST: 96 cc Omnipaque 350 (iohexol) IV ORAL CONTRAST: No oral contrast ingested. RADIATION DOSE: 8.35 CTDIvol (mGy) MEDICAL HISTORY : Cerebrovascular disease. Cardiovascular disease Diverticulitis. SURGICAL HISTORY : Cholecystectomy. ENCOUNTER: Initial ACUITY: 1 day PAIN SCALE: 9/10 LOCATION: Bilateral Abdomen TECHNIQUE: Volumetric scanning of the abdomen and pelvis was performed. Using automated exposure control and ad justment of the mA and/or kV according to patient size, radiation dose was kept as low as reasonably achievable to obtain optimal diagnostic quality images. DICOM format image data is available electro nically for review and comparison. FINDINGS: LOWER LUNGS: Airspace infiltrate in the right middle lobe perihilar distribution. Atherosclerotic calcification of the coronary arteries. LIVER: Homogeneous density without lesion. There is no dilation of the biliary tree. Patient is status post cholecystectomy. SPLEEN: Normal size without lesion. PANCREAS: Within normal limits. KIDNEYS: Normal in size and shape. There is no mass, stone or hydronephrosis. ADRENAL GLANDS: Within normal limits. VASCULAR: There is no aortic aneurysm. BOWEL/MESENTERY: The stomach, small bowel, and colon demonstrate no acute abnormality. There is no free intraperitone al air or fluid. ABDOMINAL WALL: Within normal limits. RETROPERITONEUM: There is no lymphadenopathy. BLADDER: No wall thickening or mass. REPRODUCTIVE: Within normal limits. INGUINAL: There is no lymphadenopathy or hernia. MUSCULOSKELETAL: Old compression fractures through T11, T12, L2 and L3. No acute injury. Left medullary sampson and compre ssion screw. CONCLUSION: 1. Patient's symptoms may be due to a right middle lobe perihilar pneumonic infiltrate. 2. Status post cholecystectomy. No acute intraperitoneal or pelvic process. 3. Old compression fractures of T11, T12, L2 and L3 Sunil Johnson MD on September 17, 2017 at 13:25 Board Certified Radiologist. This report was verified electronically.
--- NOTE | 2017-09-17 14:42 | EKG ---
Date Performed: 09/17/2017 Time Performed: 10:58:55 PTAGE: 67 years EKG: POSSIBLE ATRIAL TACHYCARDIA LOW QRS VOLTAGE NONSPECIFIC ST DEPRESSION ABNORMAL ECG PREVIOUS TRACING : 04/08/2012 03.50 Compared to previous tracing, possible atrial tachycardia h as replaced sinus tachycardia, nonspecific anterior ST depression is now present. DOCTOR: Kevin Ziegler Interpretating Date/Time 09/17/2017 14:41:39
[2017-09-17] MEDS ORDERED: ACETAMINOPHEN 325 MG TAB PO PRN (18:15)
[2017-09-17] MEDS ORDERED: LACTULOSE SYRUP 20 GM/30 ML CUP PO PRN (18:15)
[2017-09-17] MEDS ORDERED: BISACODYL 10 MG SUPP RECTAL PRN (18:15)
[2017-09-17] MEDS ORDERED: SODIUM CHLORIDE 0.9% FLUSH 10 ML FLUSH IV FLUSH PRN (18:15)
[2017-09-17] MEDS ORDERED: MAGNESIUM HYDROXIDE SUSP 30 ML CUP PO PRN (18:15)
[2017-09-17] MEDS ORDERED: SENNOSIDES 8.6 MG TAB PO PRN (18:15)
[2017-09-17] MEDS ORDERED: ONDANSETRON HCL 4 MG/2 ML VIAL IVP PRN (18:15)
[2017-09-17] MEDS ORDERED: NALOXONE HCL 0.4 MG/ML AMP IV PUSH PRN (18:15)
[2017-09-17] MEDS ORDERED: ENOXAPARIN SODIUM 40 MG/0.4 ML SYRINGE SQ SCH (19:00)
--- NOTE | 2017-09-17 19:02 | HHI.HP ---
HPI Service [facility] Hospitalists Primary Care Physician Unknown Admission Diagnosis Sepsis, Pna, Cadidiasis, New Afib RVR. Diagnoses: Travel History International Travel<30 Days: No Contact w/Intl Traveler <30 Da: No Traveled to Known Affected Are: No History of Present Illness This is a 67-year-old female with past medical history significant for hypertension, hyperlipidemia, arthritis, and as stated below who presents to [facility] with a four-day history of nausea, vomiting and diarrhea for the past few days. The patient was found to be febrile during transport. The patient states that she was feeling very weak since last Saturday and also in this is that she started coughing. The patient denies however chest pain or shortness of breath. Patient states she feels rundown and has aches everywhere. States that symptoms have been progressively worsening. Review of Systems As per HPI, other systems reviewed by me and negative Past Family Social History Past Medical History 1. Arthritis. 2. Hypertension. 3. Hyperlipidemia. 4. Hypothyroidism. 5. CVA. 6. Remote history of DVT. 7. Left hip fracture. 8. Depression. 9. Anxiety Past Surgical History 1. Cholecystectomy. 2. Tubal ligation. 3. Right total knee replacement arthroplasty. 4. Right hand carpal tunnel release. 5. Cardiac catheterization by Dr. Rosado. Reported Medications Reported Meds & Active Scripts Active Oxycodone (Oxycodone HCl) 5 Mg Cap 5 Mg PO Q6H PRN Reported Lorazepam 0.5 Mg Tab 0.5 Mg PO DAILY PRN Potassium Chloride ER (Potassium Chloride) 20 Meq Tab 20 Meq PO DAILY Vitamin D-1000 (Cholecalciferol) 1,000 Unit Tab 1,000 Units PO DAILY Trazodone (Trazodone HCl) 50 Mg Tab 50 Mg PO HS Atenolol 50 Mg Tab 50 Mg PO BID Flexeril (Cyclobenzaprine HCl) 10 Mg Tab 10 Mg PO TID Lovastatin 40 Mg Tab 40 Mg PO DAILY Effexor (Venlafaxine HCl) 75 Mg Tab 75 Mg PO DAILY Levothyroxine (Levothyroxine Sodium) 112 Mcg Tab 112 Mcg PO DAILY Allergies: Coded Allergies: codeine (Unverified Allergy, Severe, 09/17/17) acetaminophen (Unverified Adverse Reaction, Severe, THROAT SWELLING - NAUSEA VOMITING, 09/17/17) Active Ordered Medications Current Medications Medications (Trade) Dose Ordered Sig/Rosi Route Start Time Stop Time Status Last Admin Diltiazem HCl 125 mg/Sodium Chloride 125 ml @ 5 mls/hr TITRATE PRN IV 09/17/17 12:15 (Cardizem Inj) 32 mg ONCE PRN IV PUSH 09/17/17 12:45 09/17/17 12:36 Family History Patient states that there is cardiac history in her family. Grandmother from an [place]. Social History The patient denies smoking. The patient admits to rare alcohol use. Denies illicit drug use. The patient states she has 5 children who live in [place]. Physical Exam Vital Signs Vital Signs Date Time Temp Pulse Resp B/P (MAP) Pulse Ox O2 Delivery O2 Flow Rate FiO2 09/17/17 16:52 97 18 101/78 (86) 99 Room Air 09/17/17 15:49 92 16 110/70 (83) 99 Nasal Cannula 2.00 09/17/17 14:32 91 18 137/68 (91) 95 Nasal Cannula 2.00 09/17/17 12:35 156 09/17/17 10:40 100.7 157 18 110/68 (82) 95 Physical Exam GENERAL: This is a well-nourished, well-developed patient, in no apparent distress. SKIN: No rashes, ecchymoses. There is an erythematous rash at the level of the chest below the breasts. HEAD: Atraumatic. Normocephalic. No temporal or scalp tenderness. EYES: Pupils equal round and reactive. Extraocular motions intact. No scleral icterus. No injection or drainage. ENT: Nose without bleeding, purulent drainage or septal hematoma. Throat without erythema, tonsillar hypertrophy or exudate. Uvula midline. Airway patent. NECK: Trachea midline. No JVD or lymphadenopathy. Supple, nontender, no meningeal signs. CARDIOVASCULAR: S1-S2 are present with irregularly irregular rate and rhythm. No murmurs rubs or gallops appreciated. RESPIRATORY: Clear to auscultation. Breath sounds equal bilaterally. No wheezes , rales, or rhonchi. GASTROINTESTINAL: Abdomen soft, non-tender, nondistended. No hepato-splenomegaly , or palpable masses. No guarding. MUSCULOSKELETAL: Extremities without clubbing, cyanosis, or edema. No joint tenderness, effusion, or edema noted. No calf tenderness. Negative Homans sign bilaterally. NEUROLOGICAL: Awake and alert. Cranial nerves II through XII intact. Motor and sensory grossly within normal limits. Five out of 5 muscle strength in all muscle groups. Normal speech. Laboratory Laboratory Tests Test 09/17/17 11:10 09/17/17 11:15 09/17/17 11:25 09/17/17 13:35 Lactic Acid Level 3.2 White Blood Count 5.4 Red Blood Count 4.81 Hemoglobin 16.2 Hematocrit 47.4 Mean Corpuscular Volume 98.5 Mean Corpuscular Hemoglobin 33.6 Mean Corpuscular Hemoglobin Concent 34.1 Red Cell Distribution Width 13.2 Platelet Count 89 Mean Platelet Volume 9.3 Neutrophils (%) (Auto) 75.5 Lymphocytes (%) (Auto) 15.9 Monocytes (%) (Auto) 7.7 Eosinophils (%) (Auto) 0.3 Basophils (%) (Auto) 0.6 Neutrophils # (Auto) 4.1 Lymphocytes # (Auto) 0.9 Monocytes # (Auto) 0.4 Eosinophils # (Auto) 0.0 Basophils # (Auto) 0.0 CBC Comment AUTO DIFF Differential Comment AUTO DIFF CONFIRMED Platelet Estimate LOW Platelet Morphology Comment NORMAL Prothrombin Time 11.4 Prothromb Time International Ratio 1.1 Activated Partial Thromboplast Time 32.9 Blood Urea Nitrogen 19 Creatinine 1.19 Random Glucose 79 Total Protein 7.8 Albumin 2.9 Calcium Level 8.9 Phosphorus Level 1.8 Magnesium Level 1.7 Alkaline Phosphatase 64 Aspartate Amino Transf (AST/SGOT) 65 Alanine Aminotransferase (ALT/SGPT) 14 Total Bilirubin 0.7 Sodium Level 132 Potassium Level 4.4 Chloride Level 96 Carbon Dioxide Level 23.9 Anion Gap 12 Estimat Glomerular Filtration Rate 45 Total Creatine Kinase 712 Creatine Kinase MB 0.9 Creatine Kinase MB % 0.1 Troponin I 0.02 Lipase 158 Urine Color DARK-YELLOW Urine Turbidity HAZY Urine pH 5.5 Urine Specific [place] 1.029 Urine Protein 30 Urine Glucose (UA) NEG Urine Ketones 10 Urine Occult Blood NEG Urine Nitrite NEG Urine Bilirubin NEG Urine Urobilinogen 2.0 Urine Leukocyte Esterase NEG Urine RBC 1 Urine WBC 2 Urine Squamous Epithelial Cells <1 Urine Bacteria OCC Urine Hyaline Casts 30 Urine Mucus MANY Microscopic Urinalysis Comment CATH-CULTURE IND Blood Gas Puncture Site LINE Blood Gas Patient Temperature 98.6 Venous Blood pH 7.36 Venous Blood Partial Pressure CO2 41 Venous Blood Partial Pressure O2 32 Venous Blood HCO3 22 Venous Blood Oxygen Saturation 56 Venous Blood Oxygen Content 10.4 Venous Blood Base Excess -2.2 Oxygen Delivery Device NASAL CANNULA Blood Gas Liter Flow 2 Date/Time Source Procedure Growth Status 09/17/17 11:15 Blood Peripheral Aerobic Blood Culture Pending Received 09/17/17 11:15 Blood Peripheral Anaerobic Blood Culture Pending Received 09/17/17 11:25 Nasal Washing Influenza Types A,B Antigen ([place]) - Final NEGATIVE FOR FLU A AND B ANTIGEN.... Complete 09/17/17 11:25 Urine Catheterized Urine Urine Culture Pending Received Result Diagram: 09/17/17 1115 09/17/17 1115 Imaging Last Impressions Chest X-Ray 09/17/17 1101 Signed Impressions: Service Date/Time: Sunday, September 17, 2017 11:46 - CONCLUSION: Mild infiltrate right lung base. Stable cardiomegaly. Gonzalo Vega MD Abdomen/Pelvis CT 09/17/17 0000 Signed Impressions: Service Date/Time: Sunday, September 17, 2017 12:55 - CONCLUSION: 1. Patient's symptoms may be due to a right middle lobe perihilar pneumonic infiltrate. 2. Status post cholecystectomy. No acute intraperitoneal or pelvic process. 3. Old compression fractures of T11, T12, L2 and L3 Sunil Johnson MD Chest x-ray and CT abdomen and pelvis reviewed by me. Caprini VTE Risk Assessment Caprini VTE Risk Assessment: Mod/High Risk (score >= 2) Caprini Risk Assessment Model Point Value = 1 Point Value = 2 Point Value = 3 Point Value = 5 Age 41-60 Minor surgery BMI > 25 kg/m2 Swollen legs Varicose veins or History of unexplained or recurrent spontaneous Oral contraceptives or hormone replacement Sepsis (< 1 month) Serious lung disease, including pneumonia (< 1 month) Abnormal pulmonary function Acute myocardial infarction Congestive heart failure (< 1 month) History of inflammatory bowel disease Medical patient at bed rest Age 61-74 Arthroscopic surgery Major open surgery (> 45 min) Laparoscopic surgery (> 45 min) Malignancy Confined to bed (> 72 hours) Immobilizing plaster cast Central venous access Age >= 75 History of VTE Family history of VTE Factor V Leiden Prothrombin [id number] Lupus anticoagulant Anticardiolipin antibodies Elevated serum homocysteine Heparin-induced thrombocytopenia Other congenital or acquired thrombophilia Stroke (< 1 month) Elective arthroplasty Hip, pelvis, or leg fracture Acute spinal cord injury (< 1 month) Prophylaxis Regimen Total Risk Factor Score Risk Level Prophylaxis Regimen 0-1 Low Early ambulation 2 Moderate Order ONE of the following: *Sequential Compression Device (SCD) *Heparin 5000 units SQ BID 3-4 Higher Order ONE of the following medications: *Heparin 5000 units SQ TID *Enoxaparin/Lovenox 40 mg SQ daily (WT < 150 kg, CrCl > 30 mL/min) *Enoxaparin/Lovenox 30 mg SQ daily (WT < 150 kg, CrCl > 10-29 mL/min) *Enoxaparin/Lovenox 30 mg SQ BID (WT < 150 kg, CrCl > 30 mL/min) AND/OR *Sequential Compression Device (SCD) 5 or more Highest Order ONE of the following medications: *Heparin 5000 units SQ TID (Preferred with Epidurals) *Enoxaparin/Lovenox 40 mg SQ daily (WT < 150 kg, CrCl > 30 mL/min) *Enoxaparin/Lovenox 30 mg SQ daily (WT < 150 kg, CrCl > 10-29 mL/min) *Enoxaparin/Lovenox 30 mg SQ BID (WT < 150 kg, CrCl > 30 mL/min) AND *Sequential Compression Device (SCD) Assessment and Plan Problem List: (1) Severe sepsis ICD Code: A41.9 - Sepsis, unspecified organism; R65.20 - Severe sepsis without septic shock Status: Acute Plan: Present t on admission patient with fever and tachycardia, lactic acid of 3.2. Secondary to UTI and pneumonia. Admit the patient to the medical floor Monitor vital signs Placed on telemetry IV Rocephin IV azithromycin Follow-up blood cultures Follow-up urine culture. (2) New onset a-fib ICD Code: I48.91 - Unspecified atrial fibrillation; R65.20 - Severe sepsis without septic shock Status: Acute Plan: The patient has been started on Cardizem drip. Continue. Monitor on telemetry Consult cardiology Troponin negative (3) Atrial fibrillation with RVR ICD Code: I48.91 - Unspecified atrial fibrillation Status: Acute Plan: We will place the patient on heparin drip. Trend cardiac enzymes Check TSH (4) Pneumonia ICD Code: J18.9 - Pneumonia, unspecified organism Status: Acute Plan: Chest x-ray shows right middle lobe infiltrate. CT abdomen and pelvis also shows right infiltrate. Likely due to community-acquired pneumonia. (5) Tinea corporis ICD Code: B35.4 - Tinea corporis Status: Acute Plan: On exam there is tinea corporis under the breasts. We will place the patient nystatin powder. (6) NELLI (acute kidney injury) ICD Code: N17.9 - Acute kidney failure, unspecified Status: Acute Plan: Creatinine 1.19. Upon review of records patient's baseline between 0.5 and 0.6. Assessment and Plan GI prophylaxis: Place on PPI. DVT reflexes: SCDs, will place on heparin drip. Code Status Full code Discussed Condition With ED physician, patient. Physician Certification 2 Midnight Certification Type: Admission for Inpatient Services Order for Inpatient Services The services are ordered in accordance with Medicare regulations or non- Medicare payer requirements, as applicable. In the case of services not specified as inpatient-only, they are appropriately provided as inpatient services in accordance with the 2-midnight benchmark. Estimated LOS (days): 3 days is the estimated time the patient will need to remain in the hospital, assuming treatment plan goals are met and no additional complications. Post-Hospital Plan: Not yet determined Raz Bee MD Sep 17, 2017 19:02
[2017-09-17] MEDS: SODIUM CHLOR 0.9% 1000 ML INJ 1,000 ML IV SCH (19:10)
[2017-09-17] MEDS ORDERED: HEPARIN-D5W 25,000 U/250 ML 250 ML IV PRN (19:15)
[2017-09-17 20:19] LABS: HEMATOCRIT 42.9 % (35.0-46.0); HEMOGLOBIN 14.5 GM/DL (11.6-15.3); MEAN CELL VOLUME 98.3 FL (80.0-100.0); MEAN CORPUSCULAR HEMOGLOBIN 33.1 PG (27.0-34.0); MEAN CORPUSCULAR HGB CONC 33.7 % (32.0-36.0); MEAN PLATELET VOLUME 9.4 FL (7.0-11.0); PLATELET COUNT 92 TH/MM3 (150-450); RED BLOOD COUNT 4.37 MIL/MM3 (4.00-5.30); RED CELL DISTRIBUTION WIDTH 13.3 % (11.6-17.2); WHITE BLOOD COUNT 4.9 TH/MM3 (4.0-11.0)
[2017-09-17 20:33] LABS: INTERNATIONAL NORMALIZED RATIO 1.1 RATIO; PROTHROMBIN TIME - PATIENT 11.5 SEC (9.8-11.6)
[2017-09-17 20:56] LABS: TROPONIN I 0.02 NG/ML (0.02-0.05)
[2017-09-17] MEDS: SODIUM CHLORIDE 0.9% FLUSH 10 ML FLUSH IV FLUSH SCH (21:00)
[2017-09-17] MEDS: DOCUSATE SODIUM 50 MG/SENNA 8.6 MG TAB PO SCH (21:00)
[2017-09-17] MEDS: cefTRIAXone INJ 2,000 MG in SODIUM CHLORIDE 0.9% INJ 100 ML IV SCH (21:34)
[2017-09-17] MEDS: AZITHROMYCIN INJ 500 MG in SODIUM CHLOR 0.9% 250 ML INJ 250 ML IV SCH (23:54)
[2017-09-18] VITALS (14 sets, daily range): BP systolic 100–149; BP diastolic 61–96; PULSE 82–130; RESP 16–28; TEMP 97.6–99; O2SAT 91–97
[2017-09-18 05:59] LABS: AUTOMATED NEUTROPHIL # 2.3 TH/MM3 (1.8-7.7); BASOPHIL % 0.5 % (0.0-2.0); EOSINOPHIL # 0.2 TH/MM3 (0-0.4); EOSINOPHIL % 4.2 % (0.0-4.0); HEMATOCRIT 40.6 % (35.0-46.0); LYMPH % 25.2 % (9.0-44.0); LYMPHOCYTE # 0.9 TH/MM3 (1.0-4.8); MEAN CELL VOLUME 97.8 FL (80.0-100.0); MEAN CORPUSCULAR HEMOGLOBIN 33.7 PG (27.0-34.0); MEAN CORPUSCULAR HGB CONC 34.5 % (32.0-36.0); MEAN PLATELET VOLUME 10.1 FL (7.0-11.0); MONOCYTE # 0.3 TH/MM3 (0-0.9); NEUT % 61.1 % (16.0-70.0); PLATELET COUNT 67 TH/MM3 (150-450); RED BLOOD COUNT 4.15 MIL/MM3 (4.00-5.30); RED CELL DISTRIBUTION WIDTH 13.6 % (11.6-17.2); WHITE BLOOD COUNT 3.8 TH/MM3 (4.0-11.0)
[2017-09-18 06:24] LABS: ALBUMIN 2.1 GM/DL (3.4-5.0); ALKALINE PHOSPHATASE 47 U/L (45-117); ALT (GPT) 11 U/L (10-53); AST (GOT) 42 U/L (15-37); BICARBONATE 21.3 MEQ/L (21.0-32.0); BLOOD UREA NITROGEN 16 MG/DL (7-18); CALCIUM 7.8 MG/DL (8.5-10.1); CHLORIDE 104 MEQ/L (98-107); CREATININE 0.81 MG/DL (0.50-1.00); GLOMERULAR FILTRATION RATE 70 ML/MIN (>89); GLUCOSE,RANDOM 69 MG/DL (74-106); SODIUM (NA) 137 MEQ/L (136-145); TOTAL BILIRUBIN ADULT 0.4 MG/DL (0.2-1.0); TOTAL PROTEIN 6.1 GM/DL (6.4-8.2)
[2017-09-18 06:59] LABS: BANDS 15 % (0-6); LYMPHOCYTES 23 % (9-44); METAMYELOCYTES 1 % (0-1); MONOCYTES 3 % (0-8); MYELOCYTES 1 % (0-0); NEUTROPHIL # MANUAL DIFF 2.8 TH/MM3 (1.8-7.7); POLYS (SEG NEUTROPHILS) 57 % (16-70)
[2017-09-18 07:01] LABS: TOXIC VACUOLATION PRESENT (NONE SEEN)
[2017-09-18] MEDS: DOCUSATE SODIUM 50 MG/SENNA 8.6 MG TAB PO SCH ×2 (09:00→20:45)
[2017-09-18] MEDS: SODIUM CHLORIDE 0.9% FLUSH 10 ML FLUSH IV FLUSH SCH ×2 (09:00→20:46)
[2017-09-18] MEDS: SODIUM CHLOR 0.9% 1000 ML INJ 1,000 ML IV SCH ×3 (12:11→23:16)
[2017-09-18] MEDS ORDERED: DILTIAZEM HCL 60 MG TAB PO SCH (14:30)
[2017-09-18] MEDS ORDERED: LORazepam 0.5 MG TAB PO PRN (14:45)
[2017-09-18] MEDS ORDERED: LOPERAMIDE HCL 2 MG CAP PO PRN (14:45)
[2017-09-18] MEDS: LEVOTHYROXINE SODIUM 112 MCG TAB PO SCH (14:45)
[2017-09-18] MEDS ORDERED: ATENOLOL 50 MG TAB PO SCH (15:00)
[2017-09-18] MEDS ORDERED: NON-FORMULARY DRUG (Venlafaxine (Effexor) 75 MG) PO SCH (15:00)
[2017-09-18] MEDS: PRAVASTATIN SOD 40 MG TAB PO SCH (15:45)
[2017-09-18] MEDS: VENLAFAXINE HCL XR 75 MG CAP PO SCH (15:45)
[2017-09-18] MEDS: NYSTATIN 100,000 U/GM PWD 15 GM BTL TOPICAL SCH ×2 (15:45→22:37)
[2017-09-18] MEDS: POTASSIUM CHLORIDE 20 MEQ CONTROLLED RELEASE TAB PO SCH (15:45)
[2017-09-18] MEDS: CHOLECALCIFEROL (VIT D3) 1000 UNIT TAB PO SCH (15:45)
[2017-09-18] MEDS: DILTIAZEM HCL 30 MG TAB PO SCH ×2 (18:15→23:16)
[2017-09-18] MEDS: cefTRIAXone INJ 2,000 MG in SODIUM CHLORIDE 0.9% INJ 100 ML IV SCH (18:15)
[2017-09-18] MEDS: CYCLOBENZAPRINE HCL 10 MG TAB PO SCH (18:15)
--- NOTE | 2017-09-18 18:38 | HHI.PR ---
Subjective Remarks Deferred entry, patient seen earlier at 2:30 PM The patient states that she feels better, denies chest pain, shortness of breath improving. States feels tired. Objective Vitals Vital Signs Date Time Temp Pulse Resp B/P (MAP) Pulse Ox O2 Delivery O2 Flow Rate FiO2 09/18/17 17:00 100 23 131/96 (108) 96 Room Air 09/18/17 16:00 112 25 149/85 (106) 94 Room Air 09/18/17 15:00 114 25 119/68 (85) 94 Room Air 09/18/17 14:00 92 28 117/72 (87) 93 Room Air 09/18/17 13:00 102 25 112/79 (90) 97 Room Air 09/18/17 12:00 104 21 115/89 (98) 93 Nasal Cannula 2.00 09/18/17 11:02 88 22 114/76 (89) 94 Nasal Cannula 2.00 09/18/17 09:20 111 21 120/85 (97) 93 Nasal Cannula 2.00 09/18/17 07:05 106 09/18/17 07:00 106 20 109/89 (96) 96 Nasal Cannula 2.00 09/18/17 05:00 117 16 140/61 (87) 96 Nasal Cannula 2.00 09/18/17 03:00 99.0 130 16 113/62 (79) 95 Nasal Cannula 2.00 09/18/17 01:00 116 17 110/69 (83) 97 Nasal Cannula 2.00 09/17/17 23:00 98.9 114 14 95/70 (78) 94 Nasal Cannula 2.00 09/17/17 21:35 124 118/87 (97) 09/17/17 20:50 141 109/78 (88) 91 Nasal Cannula 09/17/17 19:41 133 94/78 09/17/17 18:51 Nasal Cannula 2.00 I/O 09/17/17 09/17/17 09/17/17 09/18/17 09/18/17 09/18/17 07:00 15:00 23:00 07:00 15:00 23:00 Intake Total 100 ml 250 ml 3350 ml Balance 100 ml 250 ml 3350 ml Intake IV Total 100 ml 250 ml 3350 ml Result Diagram: 09/18/17 0520 09/18/17 0520 Imaging Last Impressions Chest X-Ray 09/17/17 1101 Signed Impressions: Service Date/Time: Sunday, September 17, 2017 11:46 - CONCLUSION: Mild infiltrate right lung base. Stable cardiomegaly. Gonzalo Vega MD Abdomen/Pelvis CT 09/17/17 0000 Signed Impressions: Service Date/Time: Sunday, September 17, 2017 12:55 - CONCLUSION: 1. Patient's symptoms may be due to a right middle lobe perihilar pneumonic infiltrate. 2. Status post cholecystectomy. No acute intraperitoneal or pelvic process. 3. Old compression fractures of T11, T12, L2 and L3 Sunil Johnson MD Objective Remarks GENERAL: This is a well-nourished, well-developed patient, in no apparent distress. SKIN: No rashes, ecchymoses. There is an erythematous rash at the level of the chest below the breasts. HEAD: Atraumatic. Normocephalic. No temporal or scalp tenderness. EYES: Pupils equal round and reactive. Extraocular motions intact. No scleral icterus. No injection or drainage. ENT: Nose without bleeding, purulent drainage or septal hematoma. Throat without erythema, tonsillar hypertrophy or exudate. Uvula midline. Airway patent. NECK: Trachea midline. No JVD or lymphadenopathy. Supple, nontender, no meningeal signs. CARDIOVASCULAR: S1-S2 are present with irregularly irregular rate and rhythm. No murmurs rubs or gallops appreciated. RESPIRATORY: Clear to auscultation. Breath sounds equal bilaterally. No wheezes , rales, or rhonchi. GASTROINTESTINAL: Abdomen soft, non-tender, nondistended. No hepato-splenomegaly , or palpable masses. No guarding. MUSCULOSKELETAL: Extremities without clubbing, cyanosis, or edema. No joint tenderness, effusion, or edema noted. No calf tenderness. Negative Homans sign bilaterally. NEUROLOGICAL: Awake and alert. Cranial nerves II through XII intact. Motor and sensory grossly within normal limits. Five out of 5 muscle strength in all muscle groups. Normal speech. Medications and IVs Current Medications Medications (Trade) Dose Ordered Sig/Rosi Route Start Time Stop Time Status Last Admin Diltiazem HCl 125 mg/Sodium Chloride 125 ml @ 5 mls/hr TITRATE PRN IV 3/20/18 12:15 09/17/17 19:41 Sodium Chloride 1,000 ml @ 100 mls/hr Q10H IV 09/17/17 18:06 09/18/17 12:11 (NS Flush) 2 ml UNSCH PRN IV FLUSH 09/17/17 18:15 (NS Flush) 2 ml BID IV FLUSH 09/17/17 21:00 (Tylenol) 650 mg Q4H PRN PO 09/17/17 18:15 (Zofran Inj) 4 mg Q6H PRN IVP 09/17/17 18:15 (Narcan Inj) 0.4 mg UNSCH PRN IV PUSH 09/17/17 18:15 (Macey-Colace) 1 tab BID PO 09/17/17 21:00 (Milk Of Magnesia Liq) 30 ml Q12H PRN PO 09/17/17 18:15 (Senokot) 17.2 mg Q12H PRN PO 09/17/17 18:15 (Dulcolax Supp) 10 mg DAILY PRN RECTAL 09/17/17 18:15 (Lactulose Liq) 30 ml DAILY PRN PO 09/17/17 18:15 Ceftriaxone Sodium 2000 mg/ Sodium Chloride 100 ml @ 200 mls/hr Q24H IV 09/17/17 19:00 09/18/17 18:15 Azithromycin 500 mg/Sodium Chloride 250 ml @ 250 mls/hr Q24H IV 09/17/17 19:00 09/17/17 23:54 (Mycostatin Powder) 1 applic Q8HR TOPICAL 09/18/17 14:00 09/18/17 15:45 (Imodium) 2 mg Q4H PRN PO 09/18/17 14:45 09/18/17 15:45 (Vitamin D3) 1,000 units DAILY PO 09/18/17 14:45 09/18/17 15:45 (Flexeril) 10 mg TID PO 09/18/17 18:00 09/18/17 18:15 (Synthroid) 112 mcg DAILY@0600 PO 09/18/17 14:45 (Ativan) 0.5 mg DAILY PRN PO 09/18/17 14:45 (Pravachol) 40 mg DAILY PO 09/18/17 14:45 09/18/17 15:45 (Roxicodone) 5 mg Q6H PRN PO 09/18/17 14:45 (KCl) 20 meq DAILY PO 09/18/17 14:45 09/18/17 15:45 (Desyrel) 50 mg HS PO 09/18/17 21:00 (Cardizem) 30 mg Q6HR PO 09/18/17 18:00 09/18/17 18:15 (Effexor Xr) 75 mg DAILY PO 09/18/17 15:00 09/18/17 15:45 (Lopressor) 25 mg Q12HR PO 09/18/17 21:00 A/P Problem List: (1) Severe sepsis ICD Code: A41.9 - Sepsis, unspecified organism; R65.20 - Severe sepsis without septic shock Status: Acute (2) New onset a-fib ICD Code: I48.91 - Unspecified atrial fibrillation; R65.20 - Severe sepsis without septic shock Status: Acute (3) Atrial fibrillation with RVR ICD Code: I48.91 - Unspecified atrial fibrillation Status: Acute (4) Pneumonia ICD Code: J18.9 - Pneumonia, unspecified organism Status: Acute (5) Tinea corporis ICD Code: B35.4 - Tinea corporis Status: Acute (6) NELLI (acute kidney injury) ICD Code: N17.9 - Acute kidney failure, unspecified Status: Acute Assessment and Plan (1) Severe sepsis ICD Code: A41.9 - Sepsis, unspecified organism; R65.20 - Severe sepsis without septic shock Status: Acute Plan: Present t on admission patient with fever and tachycardia, lactic acid of 3.2. Secondary to UTI and pneumonia. Admit the patient to the medical floor Monitor vital signs Placed on telemetry IV Rocephin IV azithromycin Follow-up blood cultures Follow-up urine culture. 09/18 lactic acidosis resolved. Discontinue IV fluids. Continue IV antibiotics as above. Urine culture negative. (2) New onset a-fib ICD Code: I48.91 - Unspecified atrial fibrillation; R65.20 - Severe sepsis without septic shock Status: Acute Plan: The patient has been started on Cardizem drip. Continue. Monitor on telemetry Consult cardiology Troponin negative 09/18 radiology consulted. Resume patient's atenolol 50 mg p.o. twice daily, start the patient on oral diltiazem 30 mg p.o. every 6 hours and titrate Cardizem drip to off. (3) Atrial fibrillation with RVR ICD Code: I48.91 - Unspecified atrial fibrillation Status: Acute Plan: We will place the patient on heparin drip. Trend cardiac enzymes 09/18 troponin negative 2, TSH within normal range. Management of atrial fibrillation as above. (4) Pneumonia ICD Code: J18.9 - Pneumonia, unspecified organism Status: Acute Plan: Chest x-ray shows right middle lobe infiltrate. CT abdomen and pelvis also shows right infiltrate. Likely due to community-acquired pneumonia. Continue IV antibiotics. (5) Tinea corporis ICD Code: B35.4 - Tinea corporis Status: Acute Plan: On exam there is tinea corporis under the breasts. We will place the patient nystatin powder. (6) NELLI (acute kidney injury) ICD Code: N17.9 - Acute kidney failure, unspecified Status: Acute Plan: Creatinine 1.19. Upon review of records patient's baseline between 0.5 and 0.6. 09/18 creatinine trending down to 0.8. Acute kidney injury resolving. DC IV fluids Assessment and Plan GI prophylaxis: Place on PPI. DVT reflexes: SCDs, will place on heparin drip. Code Status Full code Discharge Planning Continue to monitor on the medical floor. Possible discharge in 1-2 days. aRz Bee MD Sep 18, 2017 18:38
[2017-09-18] MEDS: AZITHROMYCIN INJ 500 MG in SODIUM CHLOR 0.9% 250 ML INJ 250 ML IV SCH (18:49)
[2017-09-18] MEDS: METOPROLOL TARTRATE 25 MG TAB PO SCH (20:45)
[2017-09-18] MEDS: traZODone HCL 50 MG TAB PO SCH (20:45)
[2017-09-19] VITALS (9 sets, daily range): BP systolic 103–130; BP diastolic 57–76; PULSE 70–98; RESP 18–22; TEMP 98.1–98.4; O2SAT 90–92
[2017-09-19] MEDS: DILTIAZEM HCL 30 MG TAB PO SCH ×3 (05:25→17:42)
[2017-09-19] MEDS: LEVOTHYROXINE SODIUM 112 MCG TAB PO SCH (05:25)
[2017-09-19] MEDS: NYSTATIN 100,000 U/GM PWD 15 GM BTL TOPICAL SCH ×3 (05:25→20:47)
[2017-09-19] MEDS: CYCLOBENZAPRINE HCL 10 MG TAB PO SCH ×3 (08:33→17:42)
[2017-09-19] MEDS: ASPIRIN 81 MG CHEW TAB CHEW SCH (08:33)
[2017-09-19] MEDS: VENLAFAXINE HCL XR 75 MG CAP PO SCH (08:33)
[2017-09-19] MEDS: PRAVASTATIN SOD 40 MG TAB PO SCH (08:33)
[2017-09-19] MEDS: CHOLECALCIFEROL (VIT D3) 1000 UNIT TAB PO SCH (08:34)
[2017-09-19] MEDS: METOPROLOL TARTRATE 25 MG TAB PO SCH ×2 (08:34→20:44)
[2017-09-19] MEDS: POTASSIUM CHLORIDE 20 MEQ CONTROLLED RELEASE TAB PO SCH (08:34)
[2017-09-19] MEDS: DOCUSATE SODIUM 50 MG/SENNA 8.6 MG TAB PO SCH ×2 (08:34→20:47)
--- NOTE | 2017-09-19 09:24 | MB ---
cc: Bruno Alfonso DO DATE: 09/18/2017 REASON FOR CONSULTATION: New onset atrial fibrillation. HISTORY OF PRESENT ILLNESS: Sara Massey is a pleasant 67-year-old female who presented to [facility] Emergency Room due to nausea, vomiting and diarrhea for the past few days. The patient notes that she had been feverish and felt weak. She also noticed that she started coughing up tannish-green sputum. Upon presentation, she was found to be in atrial fibrillation with rapid ventricular response and placed on a Cardizem drip, as well as a heparin drip. Upon seeing her, she is starting to feel better. She denies chest pain, shortness of breath or palpitations. PAST MEDICAL HISTORY: 1. Arthritis. 2. Hypertension. 3. Hyperlipidemia. 4. Hypothyroidism. 5. CVA (patient states per her primary care physician that she may have had some mini strokes, but she is unsure of any neurological compromise that she has had). 6. Remote history of DVT. 7. Left hip fracture. 8. Depression. 9. Anxiety. PAST SURGICAL HISTORY: 1. Cholecystectomy. 2. Tubal ligation. 3. Right total knee replacement. 4. Right hand carpal tunnel release. 5. Cardiac catheterization (02/13/2011) for which she was found to have normal coronary anatomy, although small caliber vessels. ALLERGIES: 1. ACETAMINOPHEN. 2. CODEINE. MEDICATIONS: 1. Flexeril 10 mg t.i.d. 2. Lovastatin 40 mg daily. 3. Atenolol 50 mg b.i.d. 4. Oxycodone 5 mg every 6 hours as needed for pain. 5. Trazodone 50 mg every night. 6. Effexor 75 mg daily. 7. Ativan 0.5 mg as needed for anxiety. 8. Potassium 20 mEq daily. 9. Synthroid 112 mcg daily. FAMILY HISTORY: Grandmother from myocardial infarction. SOCIAL HISTORY: The patient denies tobacco, alcohol or drug abuse. REVIEW OF SYSTEMS: Fourteen systems were reviewed including osteopathic. Pertinent positives and negatives above, otherwise negative. PHYSICAL EXAMINATION: VITAL SIGNS: Temperature 98.6, heart rate 102, blood pressure 112/79, respirations 25, pulse oximetry 97% on room air. GENERAL: The patient appears well, in no acute distress, alert, awake and oriented x 3. HEENT: Extraocular muscles intact. Mucous membranes moist. NECK: Supple. No JVD at 45 degrees. No carotid bruits heard bilaterally. Carotid upstroke is brisk in nature. HEART: Irregularly irregular and mildly tachycardic. No murmurs, rubs or gallops are noted. LUNGS: Clear to auscultation bilaterally. No wheezes, rales or rhonchi. ABDOMEN: Soft, nontender, nondistended. No organomegaly noted. EXTREMITIES: Show trace edema bilaterally. NEUROLOGIC: No focal deficits. SKIN: Warm, dry and intact. OSTEOPATHIC: No kyphoscoliosis, lordosis or paraspinal tender points. LABORATORY DATA: Hemoglobin 14.0, hematocrit 40.6, platelets 67. Potassium 3.6, BUN 16, creatinine 0.82. Lactic acid 3.2. Troponin 0.02. ELECTROCARDIOGRAM (09/17/2017 at 10:58): Atrial fibrillation with rapid ventricular response, nonspecific ST-T wave changes. IMPRESSION: 1. New onset atrial fibrillation with rapid ventricular response. 2. Sepsis. 3. Pneumonia. 4. Acute kidney injury. 5. Thrombocytopenia. 6. Remote history of deep venous thrombosis. 7. Remote transient ischemic attacks in the past, although the patient is unable to tell me if she has ever had neurological compromise. RECOMMENDATIONS: 1. Ms. Massey presented with pneumonia and sepsis and this may have potentiated her atrial fibrillation with rapid ventricular response. 2. She has since been started on a Cardizem drip and this has been changed over to oral Cardizem. 3. I will change her atenolol to metoprolol tartrate for further heart rate control. 4. We will check a 2-D echo to look at her overall left ventricular function, cardiac structure and possible valvulopathies. 5. I discussed the consideration of anticoagulation with her and, at this point, she states that she was previously on Coumadin and during this, she had episodes of hemoptysis and does not want to be on anticoagulation. On top of this, her platelet count is currently 67,000, so we will stop heparin and not plan to place her on anticoagulation. Instead, she will be placed on aspirin 81 mg daily. 6. Further recommendations will be made based on the hospital course. Thank you for allowing me to see Sara Massey. If there are any questions, please do not hesitate to call. DO JERMAINE Isaacs , 12:56 AM , 01:26 AM
[2017-09-19 09:55] LABS: HEMATOCRIT 39.6 % (35.0-46.0); HEMOGLOBIN 13.6 GM/DL (11.6-15.3); MEAN CELL VOLUME 97.4 FL (80.0-100.0); MEAN CORPUSCULAR HEMOGLOBIN 33.5 PG (27.0-34.0); MEAN CORPUSCULAR HGB CONC 34.4 % (32.0-36.0); MEAN PLATELET VOLUME 10.1 FL (7.0-11.0); PLATELET COUNT 90 TH/MM3 (150-450); RED BLOOD COUNT 4.06 MIL/MM3 (4.00-5.30); RED CELL DISTRIBUTION WIDTH 13.4 % (11.6-17.2); WHITE BLOOD COUNT 4.7 TH/MM3 (4.0-11.0)
[2017-09-19] MEDS: SODIUM CHLOR 0.9% 1000 ML INJ 1,000 ML IV SCH (10:06)
[2017-09-19 10:22] LABS: ALBUMIN 2.1 GM/DL (3.4-5.0); ALT (GPT) 11 U/L (10-53); AST (GOT) 38 U/L (15-37); BICARBONATE 22.2 MEQ/L (21.0-32.0); BLOOD UREA NITROGEN 11 MG/DL (7-18); CALCIUM 7.8 MG/DL (8.5-10.1); CHLORIDE 107 MEQ/L (98-107); CREATININE 0.63 MG/DL (0.50-1.00); GLOMERULAR FILTRATION RATE 94 ML/MIN (>89); GLUCOSE,RANDOM 57 MG/DL (74-106); MAGNESIUM 1.8 MG/DL (1.5-2.5); PHOSPHORUS 1.6 MG/DL (2.5-4.9); SODIUM (NA) 139 MEQ/L (136-145)
[2017-09-19 10:24] LABS: ALKALINE PHOSPHATASE 45 U/L (45-117); TOTAL BILIRUBIN ADULT 0.4 MG/DL (0.2-1.0); TOTAL PROTEIN 6.1 GM/DL (6.4-8.2)
[2017-09-19] MEDS: SODIUM CHLORIDE 0.9% FLUSH 10 ML FLUSH IV FLUSH SCH ×2 (10:25→20:46)
[2017-09-19 10:46] LABS: BANDS 8 % (0-6); LYMPHOCYTES 25 % (9-44); MONOCYTES 14 % (0-8); NEUTROPHIL # MANUAL DIFF 2.8 TH/MM3 (1.8-7.7); POLYS (SEG NEUTROPHILS) 51 % (16-70)
[2017-09-19 10:49] LABS: TOXIC GRANULATION 1+ (NORMAL)
--- NOTE | 2017-09-19 12:50 | PD.CARD.PN ---
Subjective Subjective Remarks No events overnight No chest pain/SOB Heart rates controlled Objective Medications Current Medications Medications (Trade) Dose Ordered Sig/Rosi Route Start Time Stop Time Status Last Admin Diltiazem HCl 125 mg/Sodium Chloride 125 ml @ 5 mls/hr TITRATE PRN IV 09/17/17 12:15 09/17/17 19:41 Sodium Chloride 1,000 ml @ 100 mls/hr Q10H IV 09/17/17 18:06 09/18/17 23:16 (NS Flush) 2 ml UNSCH PRN IV FLUSH 09/17/17 18:15 (NS Flush) 2 ml BID IV FLUSH 09/17/17 21:00 09/19/17 10:25 (Tylenol) 650 mg Q4H PRN PO 09/17/17 18:15 (Zofran Inj) 4 mg Q6H PRN IVP 09/17/17 18:15 (Narcan Inj) 0.4 mg UNSCH PRN IV PUSH 09/17/17 18:15 (Macey-Colace) 1 tab BID PO 09/17/17 21:00 09/18/17 20:45 (Milk Of Magnesia Liq) 30 ml Q12H PRN PO 09/17/17 18:15 (Senokot) 17.2 mg Q12H PRN PO 09/17/17 18:15 (Dulcolax Supp) 10 mg DAILY PRN RECTAL 09/17/17 18:15 (Lactulose Liq) 30 ml DAILY PRN PO 09/17/17 18:15 Ceftriaxone Sodium 2000 mg/ Sodium Chloride 100 ml @ 200 mls/hr Q24H IV 09/17/17 19:00 09/18/17 18:15 Azithromycin 500 mg/Sodium Chloride 250 ml @ 250 mls/hr Q24H IV 09/17/17 19:00 09/18/17 18:49 (Mycostatin Powder) 1 applic Q8HR TOPICAL 09/18/17 14:00 09/19/17 05:25 (Imodium) 2 mg Q4H PRN PO 09/18/17 14:45 09/18/17 15:45 (Vitamin D3) 1,000 units DAILY PO 09/18/17 14:45 09/19/17 08:34 (Flexeril) 10 mg TID PO 3/21/18 18:00 09/19/17 12:44 (Synthroid) 112 mcg DAILY@0600 PO 09/18/17 14:45 09/19/17 05:25 (Ativan) 0.5 mg DAILY PRN PO 09/18/17 14:45 (Pravachol) 40 mg DAILY PO 09/18/17 14:45 09/19/17 08:33 (Roxicodone) 5 mg Q6H PRN PO 09/18/17 14:45 09/18/17 20:49 (KCl) 20 meq DAILY PO 09/18/17 14:45 09/19/17 08:34 (Desyrel) 50 mg HS PO 09/18/17 21:00 09/18/17 20:45 (Cardizem) 30 mg Q6HR PO 09/18/17 18:00 09/19/17 12:44 (Effexor Xr) 75 mg DAILY PO 09/18/17 15:00 09/19/17 08:33 (Lopressor) 25 mg Q12HR PO 09/18/17 21:00 09/19/17 08:34 (Aspirin Chew) 81 mg DAILY CHEW 09/19/17 09:00 09/19/17 08:33 Vital Signs / I&O Vital Signs Date Time Temp Pulse Resp B/P (MAP) Pulse Ox O2 Delivery O2 Flow Rate FiO2 09/19/17 11:29 70 09/19/17 11:29 90 Room Air 09/19/17 08:00 98.4 79 22 128/76 (93) 90 09/19/17 04:00 75 09/19/17 04:00 Room Air 09/19/17 04:00 98.3 83 20 108/66 (80) 91 09/19/17 00:00 83 09/19/17 00:00 Room Air 09/18/17 23:18 98.5 97 18 111/77 (88) 91 09/18/17 20:24 21 09/18/17 20:00 97.6 83 18 113/65 (81) 93 09/18/17 20:00 Room Air 09/18/17 20:00 82 09/18/17 17:00 98.6 86 20 100/70 (80) 93 09/18/17 17:00 100 23 131/96 (108) 96 Room Air 09/18/17 16:00 112 25 149/85 (106) 94 Room Air 09/18/17 15:00 114 25 119/68 (85) 94 Room Air 09/18/17 14:00 92 28 117/72 (87) 93 Room Air 09/18/17 13:00 102 25 112/79 (90) 97 Room Air I/O 09/18/17 09/18/17 09/18/17 09/19/17 09/19/17 09/19/17 07:00 15:00 23:00 07:00 15:00 23:00 Intake Total 3350 ml 999 ml Balance 3350 ml 999 ml Intake IV Total 3350 ml 999 ml Physical Exam GENERAL: NAD, AAOx3 SKIN: Warm and dry. HEAD: Atraumatic. Normocephalic. EYES: Pupils equal and round. No scleral icterus. No injection or drainage. ENT: No nasal bleeding or discharge. Mucous membranes pink and moist. NECK: Trachea midline. No JVD. CARDIOVASCULAR: Irregularly irregular RESPIRATORY: No accessory muscle use. Clear to auscultation. Breath sounds equal bilaterally. GASTROINTESTINAL: Abdomen soft, non-tender, nondistended. Hepatic and splenic margins not palpable. MUSCULOSKELETAL: Extremities without clubbing, cyanosis, or edema. No obvious deformities. NEUROLOGICAL: Awake and alert. No obvious cranial nerve deficits. Motor grossly within normal limits. Five out of 5 muscle strength in the arms and legs. Normal speech. PSYCHIATRIC: Appropriate mood and affect; insight and judgment normal. Laboratory Laboratory Tests Test 09/18/17 15:22 09/18/17 15:32 09/19/17 08:05 Activated Partial Thromboplast Time 33.4 SEC Lactic Acid Level 1.0 mmol/L White Blood Count 4.7 TH/MM3 Red Blood Count 4.06 MIL/MM3 Hemoglobin 13.6 GM/DL Hematocrit 39.6 % Mean Corpuscular Volume 97.4 FL Mean Corpuscular Hemoglobin 33.5 PG Mean Corpuscular Hemoglobin Concent 34.4 % Red Cell Distribution Width 13.4 % Platelet Count 90 TH/MM3 Mean Platelet Volume 10.1 FL CBC Comment AUTO DIFF Differential Total Cells Counted 100 Neutrophils % (Manual) 51 % Band Neutrophils % 8 % Lymphocytes % 25 % Monocytes % 14 % Eosinophils % 2 % Neutrophils # (Manual) 2.8 TH/MM3 Differential Comment FINAL DIFF MANUAL Toxic Granulation 1+ Platelet Estimate LOW Platelet Morphology Comment NORMAL Blood Urea Nitrogen 11 MG/DL Creatinine 0.63 MG/DL Random Glucose 57 MG/DL Total Protein 6.1 GM/DL Albumin 2.1 GM/DL Calcium Level 7.8 MG/DL Phosphorus Level 1.6 MG/DL Magnesium Level 1.8 MG/DL Alkaline Phosphatase 45 U/L Aspartate Amino Transf (AST/SGOT) 38 U/L Alanine Aminotransferase (ALT/SGPT) 11 U/L Total Bilirubin 0.4 MG/DL Sodium Level 139 MEQ/L Potassium Level 3.4 MEQ/L Chloride Level 107 MEQ/L Carbon Dioxide Level 22.2 MEQ/L Anion Gap 10 MEQ/L Estimat Glomerular Filtration Rate 94 ML/MIN Assessment and Plan Problem List: (1) Sepsis ICD Codes: A41.9 - Sepsis, unspecified organism (2) New onset a-fib ICD Codes: I48.91 - Unspecified atrial fibrillation; R65.20 - Severe sepsis without septic shock Status: Acute (3) Atrial fibrillation with RVR ICD Codes: I48.91 - Unspecified atrial fibrillation Status: Acute (4) NELLI (acute kidney injury) ICD Codes: N17.9 - Acute kidney failure, unspecified Status: Acute (5) Pneumonia ICD Codes: J18.9 - Pneumonia, unspecified organism Status: Acute Assessment and Plan 1) PNA/Sepsis per the primary team 2) Con't Cardizem Change Atenolol to Metoprolol for better heart rate control 3) 2D echo pending 4) ASA 81mg for anti-coagulation Discussed with her the consideration of NOAC/Coumadin, but had hemoptysis on Coumadin previously Does not want further anticoagulation Also concern with thrombocytopenia 5) No further cardiovascular work up as long as no concerns on the echo Can follow up in the office upon discharge Bruno Alfonso DO Sep 19, 2017 12:50
--- NOTE | 2017-09-19 14:04 | HHI.PR ---
Objective Vitals Vital Signs Date Time Temp Pulse Resp B/P (MAP) Pulse Ox O2 Delivery O2 Flow Rate FiO2 09/19/17 12:00 98.1 98 20 130/68 (88) 92 09/19/17 11:29 70 09/19/17 11:29 90 Room Air 09/19/17 08:00 98.4 79 22 128/76 (93) 90 09/19/17 04:00 75 09/19/17 04:00 Room Air 09/19/17 04:00 98.3 83 20 108/66 (80) 91 09/19/17 00:00 83 09/19/17 00:00 Room Air 09/18/17 23:18 98.5 97 18 111/77 (88) 91 09/18/17 20:24 21 09/18/17 20:00 97.6 83 18 113/65 (81) 93 09/18/17 20:00 Room Air 09/18/17 20:00 82 09/18/17 17:00 98.6 86 20 100/70 (80) 93 09/18/17 17:00 100 23 131/96 (108) 96 Room Air 09/18/17 16:00 112 25 149/85 (106) 94 Room Air 09/18/17 15:00 114 25 119/68 (85) 94 Room Air I/O 09/18/17 09/18/17 09/18/17 09/19/17 09/19/17 09/19/17 07:00 15:00 23:00 07:00 15:00 23:00 Intake Total 3350 ml 999 ml Balance 3350 ml 999 ml Intake IV Total 3350 ml 999 ml Result Diagram: 09/19/17 0805 09/19/17 0805 Imaging Last Impressions Chest X-Ray 09/17/17 1101 Signed Impressions: Service Date/Time: Sunday, September 17, 2017 11:46 - CONCLUSION: Mild infiltrate right lung base. Stable cardiomegaly. Gonzalo Vega MD Abdomen/Pelvis CT 09/17/17 0000 Signed Impressions: Service Date/Time: Sunday, September 17, 2017 12:55 - CONCLUSION: 1. Patient's symptoms may be due to a right middle lobe perihilar pneumonic infiltrate. 2. Status post cholecystectomy. No acute intraperitoneal or pelvic process. 3. Old compression fractures of T11, T12, L2 and L3 Sunil Johnson MD Objective Remarks GENERAL: This is a well-nourished, well-developed patient, in no apparent distress. SKIN: No rashes, ecchymoses. There is an erythematous rash at the level of the chest below the breasts. HEAD: Atraumatic. Normocephalic. No temporal or scalp tenderness. EYES: Pupils equal round and reactive. Extraocular motions intact. No scleral icterus. No injection or drainage. ENT: Nose without bleeding, purulent drainage or septal hematoma. Throat without erythema, tonsillar hypertrophy or exudate. Uvula midline. Airway patent. NECK: Trachea midline. No JVD or lymphadenopathy. Supple, nontender, no meningeal signs. CARDIOVASCULAR: S1-S2 are present with irregularly irregular rate and rhythm. No murmurs rubs or gallops appreciated. RESPIRATORY: Clear to auscultation. Breath sounds equal bilaterally. No wheezes , rales, or rhonchi. GASTROINTESTINAL: Abdomen soft, non-tender, nondistended. No hepato-splenomegaly , or palpable masses. No guarding. MUSCULOSKELETAL: Extremities without clubbing, cyanosis, or edema. No joint tenderness, effusion, or edema noted. No calf tenderness. Negative Homans sign bilaterally. NEUROLOGICAL: Awake and alert. Cranial nerves II through XII intact. Motor and sensory grossly within normal limits. Five out of 5 muscle strength in all muscle groups. Normal speech. Procedures none Medications and IVs Current Medications Medications (Trade) Dose Ordered Sig/Rosi Route Start Time Stop Time Status Last Admin Diltiazem HCl 125 mg/Sodium Chloride 125 ml @ 5 mls/hr TITRATE PRN IV 09/17/17 12:15 09/17/17 19:41 Sodium Chloride 1,000 ml @ 100 mls/hr Q10H IV 09/17/17 18:06 09/19/17 10:06 (NS Flush) 2 ml UNSCH PRN IV FLUSH 09/17/17 18:15 (NS Flush) 2 ml BID IV FLUSH 09/17/17 21:00 09/19/17 10:25 (Tylenol) 650 mg Q4H PRN PO 09/17/17 18:15 (Zofran Inj) 4 mg Q6H PRN IVP 09/17/17 18:15 (Narcan Inj) 0.4 mg UNSCH PRN IV PUSH 09/17/17 18:15 (Macey-Colace) 1 tab BID PO 09/17/17 21:00 09/18/17 20:45 (Milk Of Magnesia Liq) 30 ml Q12H PRN PO 09/17/17 18:15 (Senokot) 17.2 mg Q12H PRN PO 09/17/17 18:15 (Dulcolax Supp) 10 mg DAILY PRN RECTAL 09/17/17 18:15 (Lactulose Liq) 30 ml DAILY PRN PO 09/17/17 18:15 Ceftriaxone Sodium 2000 mg/ Sodium Chloride 100 ml @ 200 mls/hr Q24H IV 09/17/17 19:00 09/18/17 18:15 Azithromycin 500 mg/Sodium Chloride 250 ml @ 250 mls/hr Q24H IV 09/17/17 19:00 09/18/17 18:49 (Mycostatin Powder) 1 applic Q8HR TOPICAL 09/18/17 14:00 09/19/17 13:48 (Imodium) 2 mg Q4H PRN PO 09/18/17 14:45 09/18/17 15:45 (Vitamin D3) 1,000 units DAILY PO 09/18/17 14:45 09/19/17 08:34 (Flexeril) 10 mg TID PO 09/18/17 18:00 09/19/17 12:44 (Synthroid) 112 mcg DAILY@0600 PO 09/18/17 14:45 09/19/17 05:25 (Ativan) 0.5 mg DAILY PRN PO 09/18/17 14:45 (Pravachol) 40 mg DAILY PO 09/18/17 14:45 09/19/17 08:33 (Roxicodone) 5 mg Q6H PRN PO 09/18/17 14:45 09/18/17 20:49 (KCl) 20 meq DAILY PO 09/18/17 14:45 09/19/17 08:34 (Desyrel) 50 mg HS PO 09/18/17 21:00 09/18/17 20:45 (Cardizem) 30 mg Q6HR PO 09/18/17 18:00 09/19/17 12:44 (Effexor Xr) 75 mg DAILY PO 09/18/17 15:00 09/19/17 08:33 (Lopressor) 25 mg Q12HR PO 09/18/17 21:00 09/19/17 08:34 (Aspirin Chew) 81 mg DAILY CHEW 09/19/17 09:00 09/19/17 08:33 A/P Problem List: (1) Severe sepsis ICD Code: A41.9 - Sepsis, unspecified organism; R65.20 - Severe sepsis without septic shock Status: Acute (2) New onset a-fib ICD Code: I48.91 - Unspecified atrial fibrillation; R65.20 - Severe sepsis without septic shock Status: Acute (3) Atrial fibrillation with RVR ICD Code: I48.91 - Unspecified atrial fibrillation Status: Acute (4) Pneumonia ICD Code: J18.9 - Pneumonia, unspecified organism Status: Acute (5) Tinea corporis ICD Code: B35.4 - Tinea corporis Status: Acute (6) NELLI (acute kidney injury) ICD Code: N17.9 - Acute kidney failure, unspecified Status: Acute Assessment and Plan (1) Severe sepsis ICD Code: A41.9 - Sepsis, unspecified organism; R65.20 - Severe sepsis without septic shock Status: Acute Plan: Present t on admission patient with fever and tachycardia, lactic acid of 3.2. Secondary to UTI and pneumonia. Admit the patient to the medical floor Monitor vital signs Placed on telemetry IV Rocephin IV azithromycin Follow-up blood cultures Follow-up urine culture. 09/18 lactic acidosis resolved. Discontinue IV fluids. Continue IV antibiotics as above. Urine culture negative. (2) New onset a-fib ICD Code: I48.91 - Unspecified atrial fibrillation; R65.20 - Severe sepsis without septic shock Status: Acute Plan: The patient has been started on Cardizem drip. Continue. Monitor on telemetry Consult cardiology Troponin negative 09/18 cardiology consulted. Resume patient's atenolol 50 mg p.o. twice daily, start the patient on oral diltiazem 30 mg p.o. every 6 hours and titrate Cardizem drip to off. 09/19 Cardizem drip. as per cardiology note change atenolol to metoprolol for better heart rate control. As per cardiology patient does not wish to have any further antic regulation due to previous episode of hemoptysis and concerns for thrombus cytopenia. The patient would not be a on chronic anticoagulant agent. 2D echocardiogram shows an EF of 50-55%, left atrial size moderately dilated, trace mitral valve regurgitation mild tricuspid valve regurgitation and trivial pulmonary valve regurgitation. (3) Atrial fibrillation with RVR ICD Code: I48.91 - Unspecified atrial fibrillation Status: Acute Plan: We will place the patient on heparin drip. Trend cardiac enzymes 09/18 troponin negative 2, TSH within normal range. Management of atrial fibrillation as above. 09/19 heart rate controlled. Management as per cardiology. Discussed the case with Dr. Alfonso who cleared the patient to be discharged on no chronic anticoagulation as explained above. (4) Pneumonia ICD Code: J18.9 - Pneumonia, unspecified organism Status: Acute Plan: Chest x-ray shows right middle lobe infiltrate. CT abdomen and pelvis also shows right infiltrate. Likely due to community-acquired pneumonia. 09/19 continue IV Rocephin and IV azithromycin. Will order respiratory home walk test. (5) Tinea corporis ICD Code: B35.4 - Tinea corporis Status: Acute Plan: On exam there is tinea corporis under the breasts. Continue nystatin powder to be applied under the breast. (6) NELLI (acute kidney injury) ICD Code: N17.9 - Acute kidney failure, unspecified Status: Acute Plan: Creatinine 1.19. Upon review of records patient's baseline between 0.5 and 0.6. 09/18 creatinine trending down to 0.8. Acute kidney injury resolving. 09/19 discontinue IV fluids. Acute kidney injury resolved. Assessment and Plan GI prophylaxis: Place on PPI. DVT reflexes: SCDs, will place on heparin drip. Code Status Full code Discharge Planning Possible discharge in a.m. The patient will need rehab placement. Pending respiratory home walk test. Raz Bee MD Sep 19, 2017 14:04
[2017-09-19] MEDS ORDERED: POTASSIUM CHLORIDE 10 MEQ CONTROLLED RELEASE TAB PO ONE (14:15)
--- NOTE | 2017-09-19 15:06 | ECHRPT ---
Indication: Atrial fib and Flutter CONCLUSIONS The left ventricular systolic function is low normal with an estimated ejection fraction in the rang e of 50- 55%. Wall thickness is normal. Normal left ventricular size. The left atrial size is moderately dilated. Mitral annular calcification is present. Trace mitral valve regurgitation. Diffuse calcification of the aortic valve. Mild aortic valve regurgitation. There is mild tricuspid valve regurgitation. Trivial pulmonary valve regurgitation. BP: 149 / 85 HR: 114 Rhythm: Atrial flutter MEASUREMENTS (Male / Female) Normal Values Technical Quality:Fair 2D ECHO LV Diastolic Diameter PLAX 5.0 cm 4.2 - 5.9 / 3.9 - 5.3 cm LV Systolic Diameter PLAX 3.9 cm IVS Diastolic Thickness 1.0 cm 0.6 - 1.0 / 0.6 - 0.9 cm LVPW Diastolic Thickness 1.0 cm 0.6 - 1.0 / 0.6 - 0.9 cm LV Relative Wall Thickness 0.4 RV Internal Dim ED PLAX 2.3 cm LVOT Diameter 2.1 cm LA Systolic Diameter LX 4.7 cm 3.0 - 4.0 / 2.7 - 3.8 cm M-MODE Aortic Root Diameter MM 3.4 cm LA Systolic Diameter MM 4.1 cm LA Ao Ratio MM 1.2 AV Cusp Separation MM 1.9 cm DOPPLER AV Peak Velocity 127.0 cm/s AV Peak Gradient 6.5 mmHg AV Mean Gradient 3.0 mmHg AV Velocity Time Integral 21.6 cm AI Peak Velocity 353.3 cm/s AI Peak Gradient 49.9 mmHg AI Pressure Half Time 729.0 ms LVOT Peak Velocity 76.0 cm/s LVOT Peak Gradient 2.3 mmHg LVOT Velocity Time Integral 12.8 cm LVOT Cardiac Index 2394.6 cm/minm AV Area Cont Eq vti 2.0 cm AV Area Cont Eq pk 2.1 cm MV Area PHT 3.1 cm Mitral E Point Velocity 113.0 cm/s Mitral A Point Velocity 35.0 cm/s Mitral E to A Ratio 3.2 LV E' Lateral Velocity 11.1 cm/s Mitral E to LV E' Lateral Ratio 10.2 LV E' Septal Velocity 9.8 cm/s Mitral E to LV E' Septal Ratio 11.6 TR Peak Velocity 213.0 cm/s TR Peak Gradient 18.1 mmHg Right Atrial Pressure 10.0 mmHg Pulmonary Artery Systolic Pressu 28.1 mmHg Right Ventricular Systolic Press 28.1 mmHg FINDINGS LEFT VENTRICLE The left ventricular systolic function is low normal with an estimated ejection fraction in the rang e of 50- 55%. Wall thickness is normal. Normal left ventricular size. RIGHT VENTRICLE Normal right ventricular size and systolic function. LEFT ATRIUM The left atrial size is moderately dilated. RIGHT ATRIUM The right atrial size is normal. ATRIAL SEPTUM Normal atrial septal thickness without atrial level shunting by limited color doppler interrogation. AORTA The aortic root and proximal ascending aorta are normal in size on limited imaging. MITRAL VALVE Mitral annular calcification is present. Trace mitral valve regurgitation. AORTIC VALVE Trileaflet aortic valve. Diffuse calcification of the aortic valve. Mild aortic valve regurgitation. TRICUSPID VALVE Structurally normal tricuspid valve. There is mild tricuspid valve regurgitation. The estimated pulmonary arterial pressure is 28.1 mmHg. PULMONARY VALVE Trivial pulmonary valve regurgitation. VESSELS The inferior vena cava is normal in size. PERICARDIUM No pericardial effusion. Romaine Ballard MD, FACC, FSCAI (Electronically Signed) Final Date:19 September 2017 15:04
[2017-09-19] MEDS: cefTRIAXone INJ 2,000 MG in SODIUM CHLORIDE 0.9% INJ 100 ML IV SCH (18:53)
[2017-09-19] MEDS: AZITHROMYCIN INJ 500 MG in SODIUM CHLOR 0.9% 250 ML INJ 250 ML IV SCH (20:44)
[2017-09-19] MEDS: traZODone HCL 50 MG TAB PO SCH (20:45)
[2017-09-20] VITALS (7 sets, daily range): BP systolic 131–151; BP diastolic 68–106; PULSE 91–121; RESP 18–22; TEMP 97.4–98.5; O2SAT 92–94
[2017-09-20] MEDS: DILTIAZEM HCL 30 MG TAB PO SCH ×3 (00:50→13:08)
[2017-09-20] MEDS: POTASSIUM PHOSPHATE/SODIUM PHOSPHATE 250 MG TAB PO SCH ×3 (00:51→12:00)
[2017-09-20] MEDS: NYSTATIN 100,000 U/GM PWD 15 GM BTL TOPICAL SCH ×2 (06:00→14:00)
[2017-09-20] MEDS: LEVOTHYROXINE SODIUM 112 MCG TAB PO SCH (06:05)
[2017-09-20 07:06] LABS: HEMATOCRIT 40.9 % (35.0-46.0); MEAN CELL VOLUME 97.8 FL (80.0-100.0); MEAN CORPUSCULAR HEMOGLOBIN 33.6 PG (27.0-34.0); MEAN CORPUSCULAR HGB CONC 34.3 % (32.0-36.0); MEAN PLATELET VOLUME 10.1 FL (7.0-11.0); PLATELET COUNT 96 TH/MM3 (150-450); RED BLOOD COUNT 4.18 MIL/MM3 (4.00-5.30); RED CELL DISTRIBUTION WIDTH 13.1 % (11.6-17.2)
[2017-09-20] MEDS: ASPIRIN 81 MG CHEW TAB CHEW SCH (08:42)
[2017-09-20] MEDS: VENLAFAXINE HCL XR 75 MG CAP PO SCH (08:42)
[2017-09-20] MEDS: PRAVASTATIN SOD 40 MG TAB PO SCH (08:43)
[2017-09-20] MEDS: CHOLECALCIFEROL (VIT D3) 1000 UNIT TAB PO SCH (08:43)
[2017-09-20] MEDS: DOCUSATE SODIUM 50 MG/SENNA 8.6 MG TAB PO SCH (08:43)
[2017-09-20] MEDS: CYCLOBENZAPRINE HCL 10 MG TAB PO SCH ×2 (08:43→13:00)
[2017-09-20] MEDS: METOPROLOL TARTRATE 25 MG TAB PO SCH (08:43)
[2017-09-20] MEDS: POTASSIUM CHLORIDE 20 MEQ CONTROLLED RELEASE TAB PO SCH (08:43)
[2017-09-20] MEDS: SODIUM CHLORIDE 0.9% FLUSH 10 ML FLUSH IV FLUSH SCH (10:00)
[2017-09-20] MEDS ORDERED: LOPERAMIDE HCL 2 MG CAP PO PRN (11:15)
[2017-09-20] MEDS ORDERED: DILT31TA PO (11:21)
[2017-09-20] MEDS ORDERED: LOPE2CAP2 PO (11:21)
--- NOTE | 2017-09-20 11:26 | HHI.DCPOC ---
Discharge Care Plan Diagnosis: (1) Atrial fibrillation (2) Tinea corporis (3) Pneumonia (4) Severe sepsis (5) New onset a-fib (6) Atrial fibrillation with RVR (7) NELLI (acute kidney injury) (8) Sepsis Goals to Promote Your Health * To prevent worsening of your condition and complications * To maintain your health at the optimal level Directions to Meet Your Goals Take your medications as prescribed Follow your dietary instruction Follow activity as directed Keep your appointments as scheduled Take your immunizations and boosters as scheduled If your symptoms worsen call your PCP, if no PCP go to Urgent Care Center or Emergency Room Smoking is Dangerous to Your Health. Avoid second hand smoke Call the 24-hour hour crisis hotline for domestic abuse at Raz Bee MD Sep 20, 2017 11:26
--- NOTE | 2017-09-20 11:33 | HHI.DS ---
Discharge Summary Admission Date Sep 17, 2017 at 14:36 Discharge Date: Sep 20, 2017 Admitting Diagnosis Sepsis, Pna, Cadidiasis, New Afib RVR. (1) Severe sepsis ICD Code: A41.9 - Sepsis, unspecified organism; R65.20 - Severe sepsis without septic shock Status: Acute (2) New onset a-fib ICD Code: I48.91 - Unspecified atrial fibrillation; R65.20 - Severe sepsis without septic shock Status: Acute (3) Atrial fibrillation with RVR ICD Code: I48.91 - Unspecified atrial fibrillation Status: Acute (4) Pneumonia ICD Code: J18.9 - Pneumonia, unspecified organism Status: Acute (5) Tinea corporis ICD Code: B35.4 - Tinea corporis Status: Acute (6) NELLI (acute kidney injury) ICD Code: N17.9 - Acute kidney failure, unspecified Status: Acute Procedures none Brief History - From Admission This is a 67-year-old female with past medical history significant for hypertension, hyperlipidemia, arthritis, and as stated below who presents to [facility] with a four-day history of nausea, vomiting and diarrhea for the past few days. The patient was found to be febrile during transport. The patient states that she was feeling very weak since last Saturday and also in this is that she started coughing. The patient denies however chest pain or shortness of breath. Patient states she feels rundown and has aches everywhere. States that symptoms have been progressively worsening. CBC/BMP: 09/20/17 0551 09/19/17 0805 Significant Findings Laboratory Tests Test 09/17/17 13:35 09/17/17 19:30 09/18/17 02:38 09/18/17 05:20 Venous Blood Partial Pressure CO2 41 mmHg (44-48) Venous Blood Partial Pressure O2 32 mmHg (35-40) Venous Blood Oxygen Saturation 56 % (70-76) Venous Blood Base Excess -2.2 mmol/L (-2-2) Platelet Count 92 TH/MM3 (150-450) 67 TH/MM3 (150-450) Activated Partial Thromboplast Time 34.2 SEC (24.3-30.1) 107.4 SEC (24.3-30.1) White Blood Count 3.8 TH/MM3 (4.0-11.0) Monocytes (%) (Auto) 9.0 % (0.0-8.0) Eosinophils (%) (Auto) 4.2 % (0.0-4.0) Lymphocytes # (Auto) 0.9 TH/MM3 (1.0-4.8) Band Neutrophils % 15 % (0-6) Myelocytes 1 % (0-0) Toxic Vacuolation PRESENT (NONE SEEN) Platelet Estimate LOW (NORMAL) Random Glucose 69 MG/DL (74-106) Total Protein 6.1 GM/DL (6.4-8.2) Albumin 2.1 GM/DL (3.4-5.0) Calcium Level 7.8 MG/DL (8.5-10.1) Aspartate Amino Transf (AST/SGOT) 42 U/L (15-37) Estimat Glomerular Filtration Rate 70 ML/MIN (>89) Test 09/18/17 12:19 09/18/17 15:22 09/18/17 15:32 09/19/17 08:05 Activated Partial Thromboplast Time 33.4 SEC (24.3-30.1) Platelet Count 90 TH/MM3 (150-450) Band Neutrophils % 8 % (0-6) Monocytes % 14 % (0-8) Toxic Granulation 1+ (NORMAL) Platelet Estimate LOW (NORMAL) Random Glucose 57 MG/DL (74-106) Total Protein 6.1 GM/DL (6.4-8.2) Albumin 2.1 GM/DL (3.4-5.0) Calcium Level 7.8 MG/DL (8.5-10.1) Phosphorus Level 1.6 MG/DL (2.5-4.9) Aspartate Amino Transf (AST/SGOT) 38 U/L (15-37) Potassium Level 3.4 MEQ/L (3.5-5.1) Test 09/20/17 05:51 Platelet Count 96 TH/MM3 (150-450) Imaging Last Impressions Chest X-Ray 09/17/17 1101 Signed Impressions: Service Date/Time: Sunday, September 17, 2017 11:46 - CONCLUSION: Mild infiltrate right lung base. Stable cardiomegaly. Gonzalo Vega MD Abdomen/Pelvis CT 09/17/17 0000 Signed Impressions: Service Date/Time: Sunday, September 17, 2017 12:55 - CONCLUSION: 1. Patient's symptoms may be due to a right middle lobe perihilar pneumonic infiltrate. 2. Status post cholecystectomy. No acute intraperitoneal or pelvic process. 3. Old compression fractures of T11, T12, L2 and L3 Sunil Johnson MD PE at Discharge GENERAL: This is a well-nourished, well-developed patient, in no apparent distress. SKIN: No rashes, ecchymoses. There is an erythematous rash at the level of the chest below the breasts. HEAD: Atraumatic. Normocephalic. No temporal or scalp tenderness. EYES: Pupils equal round and reactive. Extraocular motions intact. No scleral icterus. No injection or drainage. ENT: Nose without bleeding, purulent drainage or septal hematoma. Throat without erythema, tonsillar hypertrophy or exudate. Uvula midline. Airway patent. NECK: Trachea midline. No JVD or lymphadenopathy. Supple, nontender, no meningeal signs. CARDIOVASCULAR: S1-S2 are present with irregularly irregular rate and rhythm. No murmurs rubs or gallops appreciated. RESPIRATORY: Clear to auscultation. Breath sounds equal bilaterally. No wheezes , rales, or rhonchi. GASTROINTESTINAL: Abdomen soft, non-tender, nondistended. No hepato-splenomegaly , or palpable masses. No guarding. MUSCULOSKELETAL: Extremities without clubbing, cyanosis, or edema. No joint tenderness, effusion, or edema noted. No calf tenderness. Negative Homans sign bilaterally. NEUROLOGICAL: Awake and alert. Cranial nerves II through XII intact. Motor and sensory grossly within normal limits. Five out of 5 muscle strength in all muscle groups. Normal speech. Pt Condition on Discharge: Stable Discharge Disposition: Discharge to SNF Discharge Time: > 30 minutes Discharge Instructions DIET: Follow Instructions for: Heart Healthy Diet Activities you can perform: Regular-No Restrictions, See Additionl Instruction Other Activity Instructions: as per PT instructions Follow up Referrals: PCP Follow-up - 2 Weeks New Medications: Diltiazem (Cardizem) 30 Mg Tab 30 MG PO Q6HR for heart rate cntrol, #120 TAB Loperamide HCl (Hm Loperamide HCl) 2 Mg Cap 2 MG PO Q4H PRN for DIARRHEA, #30 CAP Continued Medications: Atenolol (Atenolol) 50 Mg Tab 50 MG PO BID for Blood Pressure Management, #60 TAB 0 Refills Cholecalciferol (Vitamin D-1000) 1,000 Unit Tab 1000 UNITS PO DAILY for Nutritional Supplement, #1 BOTTLE 0 Refills Cyclobenzaprine (Flexeril) 10 Mg Tab 10 MG PO TID for Muscle Spasm, #90 TAB 0 Refills Levothyroxine (Levothyroxine) 112 Mcg Tab 112 MCG PO DAILY for Thyroid, #30 TAB 0 Refills Lorazepam (Lorazepam) 0.5 Mg Tab 0.5 MG PO DAILY PRN for ANXIETY, TAB 0 Refills Lovastatin (Lovastatin) 40 Mg Tab 40 MG PO DAILY for Cholesterol Management, #30 TAB 0 Refills Potassium Chloride ER (Potassium Chloride ER) 20 Meq Tab 20 MEQ PO DAILY for Electrolyte Replacement, #30 TAB 0 Refills Trazodone (Trazodone) 50 Mg Tab 50 MG PO HS for Control Depression, #30 TAB 0 Refills Venlafaxine (Effexor) 75 Mg Tab 75 MG PO DAILY, #30 TAB 0 Refills Discontinued Medications: Oxycodone (Oxycodone) 5 Mg Cap 5 MG PO Q6H PRN for PAIN, #10 CAP 0 Refills Raz Bee MD Sep 20, 2017 11:33
--- NOTE | 2017-09-20 11:33 | PD.CARD.PN ---
Subjective Subjective Remarks No events overnight No chest pain/SOB Heart rates mostly controlled Objective Medications Current Medications Medications (Trade) Dose Ordered Sig/Rosi Route Start Time Stop Time Status Last Admin Diltiazem HCl 125 mg/Sodium Chloride 125 ml @ 5 mls/hr TITRATE PRN IV 09/17/17 12:15 09/17/17 19:41 (NS Flush) 2 ml UNSCH PRN IV FLUSH 09/17/17 18:15 (NS Flush) 2 ml BID IV FLUSH 09/17/17 21:00 09/20/17 10:00 (Tylenol) 650 mg Q4H PRN PO 09/17/17 18:15 (Zofran Inj) 4 mg Q6H PRN IVP 09/17/17 18:15 (Narcan Inj) 0.4 mg UNSCH PRN IV PUSH 09/17/17 18:15 (Macey-Colace) 1 tab BID PO 09/17/17 21:00 09/20/17 08:43 (Milk Of Magnesia Liq) 30 ml Q12H PRN PO 09/17/17 18:15 (Senokot) 17.2 mg Q12H PRN PO 09/17/17 18:15 (Dulcolax Supp) 10 mg DAILY PRN RECTAL 09/17/17 18:15 (Lactulose Liq) 30 ml DAILY PRN PO 09/17/17 18:15 Ceftriaxone Sodium 2000 mg/ Sodium Chloride 100 ml @ 200 mls/hr Q24H IV 09/17/17 19:00 09/19/17 18:53 Azithromycin 500 mg/Sodium Chloride 250 ml @ 250 mls/hr Q24H IV 09/17/17 19:00 09/19/17 20:44 (Mycostatin Powder) 1 applic Q8HR TOPICAL 09/18/17 14:00 09/20/17 06:00 (Imodium) 2 mg Q4H PRN PO 09/18/17 14:45 09/18/17 15:45 (Vitamin D3) 1,000 units DAILY PO 09/18/17 14:45 09/20/17 08:43 (Flexeril) 10 mg TID PO 09/18/17 18:00 09/20/17 08:43 (Synthroid) 112 mcg DAILY@0600 PO 09/18/17 14:45 09/20/17 06:05 (Ativan) 0.5 mg DAILY PRN PO 09/18/17 14:45 (Pravachol) 40 mg DAILY PO 09/18/17 14:45 09/20/17 08:43 (Roxicodone) 5 mg Q6H PRN PO 09/18/17 14:45 09/18/17 20:49 (KCl) 20 meq DAILY PO 09/18/17 14:45 09/20/17 08:43 (Desyrel) 50 mg HS PO 09/18/17 21:00 09/19/17 20:45 (Cardizem) 30 mg Q6HR PO 09/18/17 18:00 09/20/17 06:05 (Effexor Xr) 75 mg DAILY PO 09/18/17 15:00 09/20/17 08:42 (Lopressor) 25 mg Q12HR PO 09/18/17 21:00 09/20/17 08:43 (Aspirin Chew) 81 mg DAILY CHEW 09/19/17 09:00 09/20/17 08:42 (K-Phos Neutral) 250 mg Q6HR PO 09/20/17 00:00 09/20/17 06:27 (Imodium) 2 mg Q4H PRN PO 09/20/17 11:15 Vital Signs / I&O Vital Signs Date Time Temp Pulse Resp B/P (MAP) Pulse Ox O2 Delivery O2 Flow Rate FiO2 09/20/17 08:00 98.0 101 22 151/92 (111) 94 09/20/17 04:15 97.4 96 18 131/99 (110) 93 09/20/17 03:45 102 09/20/17 00:45 97.7 91 18 134/68 (90) 92 09/20/17 00:00 91 09/19/17 20:40 Room Air 09/19/17 20:13 93 09/19/17 19:45 98.2 96 18 123/71 (88) 92 09/19/17 16:00 98.3 87 18 103/57 (72) 92 09/19/17 16:00 86 09/19/17 14:37 90 09/19/17 14:37 92 Room Air 09/19/17 12:00 98.1 98 20 130/68 (88) 92 I/O 09/19/17 09/19/17 09/19/17 09/20/17 09/20/17 09/20/17 07:00 15:00 23:00 07:00 15:00 23:00 Intake Total 999 ml 250 ml 240 ml Balance 999 ml 250 ml 240 ml Intake Oral 240 ml IV Total 999 ml 250 ml # Voids 6 4 # Bowel Movements 6 4 Physical Exam GENERAL: NAD, AAOx3 SKIN: Warm and dry. HEAD: Atraumatic. Normocephalic. EYES: Pupils equal and round. No scleral icterus. No injection or drainage. ENT: No nasal bleeding or discharge. Mucous membranes pink and moist. NECK: Trachea midline. No JVD. CARDIOVASCULAR: Irregularly irregular RESPIRATORY: No accessory muscle use. Clear to auscultation. Breath sounds equal bilaterally. GASTROINTESTINAL: Abdomen soft, non-tender, nondistended. Hepatic and splenic margins not palpable. MUSCULOSKELETAL: Extremities without clubbing, cyanosis, or edema. No obvious deformities. NEUROLOGICAL: Awake and alert. No obvious cranial nerve deficits. Motor grossly within normal limits. Five out of 5 muscle strength in the arms and legs. Normal speech. PSYCHIATRIC: Appropriate mood and affect; insight and judgment normal. Laboratory Laboratory Tests Test 09/20/17 05:51 White Blood Count 4.0 TH/MM3 Red Blood Count 4.18 MIL/MM3 Hemoglobin 14.0 GM/DL Hematocrit 40.9 % Mean Corpuscular Volume 97.8 FL Mean Corpuscular Hemoglobin 33.6 PG Mean Corpuscular Hemoglobin Concent 34.3 % Red Cell Distribution Width 13.1 % Platelet Count 96 TH/MM3 Mean Platelet Volume 10.1 FL Assessment and Plan Problem List: (1) Sepsis ICD Codes: A41.9 - Sepsis, unspecified organism (2) New onset a-fib ICD Codes: I48.91 - Unspecified atrial fibrillation; R65.20 - Severe sepsis without septic shock Status: Acute (3) Atrial fibrillation with RVR ICD Codes: I48.91 - Unspecified atrial fibrillation Status: Acute (4) NELLI (acute kidney injury) ICD Codes: N17.9 - Acute kidney failure, unspecified Status: Acute (5) Pneumonia ICD Codes: J18.9 - Pneumonia, unspecified organism Status: Acute Assessment and Plan 1) PNA/Sepsis per the primary team 2) Con't Cardizem/Metoprolol Consider increase of Cardizem if heart rates still elevated 3) EF 50-55% 4) ASA 81mg for anti-coagulation Discussed with her the consideration of NOAC/Coumadin, but had hemoptysis on Coumadin previously Does not want further anticoagulation Also concern with thrombocytopenia 5) No further cardiovascular work up Can follow up in the office upon discharge Problem Qualifiers (1) Pneumonia: Qualified Codes: J18.1 - Lobar pneumonia, unspecified organism Bruno Alfonso DO Sep 20, 2017 11:33
[2017-09-20] MEDS ORDERED: ASPI81 CHEW (14:14)
[2017-09-20] MEDS ORDERED: METO25TA3 PO (14:14)
[2017-09-20] MEDS ORDERED: CARD240C6 PO (14:14)
--- NOTE | 2017-09-20 14:16 | HHI.FF ---
Face to Face Verification Diagnosis: (1) Atrial fibrillation (2) NELLI (acute kidney injury) (3) Sepsis (4) Tinea corporis (5) Pneumonia (6) New onset a-fib Physical Therapy Order: Improve ambulation Home Health Nursing Order: Nursing assessment with vital signs I have seen patient Sara Massey on 09/20/17. My clinical findings support the need for the requested home health care services because: Patient has SOB Need for psychosocial assistance High risk of falls Infection w/ risk of complications I certify that my clinical findings support that this patient is homebound because: Unsafe to leave home unassisted Need for psychosocial assistance Unable to use public transportation Raz Bee MD Sep 20, 2017 14:15
[2017-09-20] MEDS ORDERED: AZIT500T2 PO (14:18)
[2017-09-20] MEDS ORDERED: CEFU1TAB18 PO (14:18)
--- NOTE | 2017-09-20 16:17 | HHI.FF ---
Face to Face Verification Diagnosis: (1) New onset a-fib (2) Pneumonia (3) Tinea corporis (4) Sepsis (5) NELLI (acute kidney injury) Physical Therapy Order: Improve ambulation I have seen patient Sara Massey on 09/20/17. My clinical findings support the need for the requested home health care services because: Patient has SOB Need for psychosocial assistance Infection w/ risk of complications I certify that my clinical findings support that this patient is homebound because: Impaired cognitive ability/safety Unsteady gait/balance Need for psychosocial assistance Raz Bee MD Sep 20, 2017 16:16
== END 2017-09-20 17:41 | disposition home health service (06) | DRG 871 ==
LOC: NEPD 10:22 → NEDA 14:36 → NEDH 20:07 → N04B 09-18 17:51
PROVIDERS: ADMIT Hospitalist; ATTEND Hospitalist
DX: A41.9 Sepsis, unspecified organism (principal); J18.9 Pneumonia, unspecified organism; N17.9 Acute kidney failure, unspecified; I48.91 Unspecified atrial fibrillation; D69.6 Thrombocytopenia, unspecified; E87.1 Hypo-osmolality and hyponatremia; R65.20 Severe sepsis without septic shock; B35.4 Tinea corporis; I10 Essential (primary) hypertension; E03.9 Hypothyroidism, unspecified; F32.9 Major depressive disorder, single episode, unspecified; F41.9 Anxiety disorder, unspecified; E78.5 Hyperlipidemia, unspecified; M19.90 Unspecified osteoarthritis, unspecified site; Z86.73 Personal history of transient ischemic attack (TIA), and cerebral infarction without residual deficits; Z86.718 Personal history of other venous thrombosis and embolism; Z96.651 Presence of right artificial knee joint
CPT/HCPCS: 71045; 74177; 80053; 81001; 82272; 82550; 82552; 82805; 83605; 83690; 83735; 84100; 84443; 84484; 85007; 85025; 85027; 85610; 85730; 87040; 87086; 87493; 87804; 93005; 93306; 96361; 96365; 96375; 96376; J0456; J0696; J1644; J2405; J2543; J3370; J7030; J7050; Q9967